=== PATIENT | female | born 1985 | race African-American/Black ===

== ENCOUNTER 2016-03-14 00:13 | Emergency (ER) | payer MEDICARE, MEDICAID ==
[~2016-03-14] VITALS: Ht 162.6 cm; Wt 90.7 kg
[~2016-03-14 00:13] MED LIST: AC325T; ACHD5005 PO; AMPI250C11 PO; BENZ100C18 PO; CEFP500T4 PO; CPR500T PO; CYCL10TA9 PO; DEPO SHOT; DOXY100C2 PO; ESCT10T; HYDR-1231 PO; HYDR-2890 PO; HYDR-34 PO; HYDR1CAP2; HYDR1CAP2 PO; HYDR1TAB66 PO; IBP600T1 PO; IBP800T PO; METH4TAB PO; METR500T PO; NAPR-243 PO; NAPR550T PO; NAPROXEN; NITR-65 PO; NITR100C PO; NYQUIL; ONDA-42 SL; ONDAN4ODT PO; PHEN200T27 PO; PHENTERMINE HCL; PRD20T PO; PRD50T PO; PRM25T PO; SULF-222 PO; SULF1TAB38 PO; SULF1TAB7 PO; TRAM-21 PO; TRAM50TA2 PO; TRM50T PO; ZLP10T
--- OUTSIDE RECORDS SUMMARY | 2016-03-14 00:20 | XMS REPORT | Continuity of Care Document ---
Author Author [facility] Organization [facility] Address Unknown Phone Unavailable Care Team Providers Care Capacitor Tester Name Role Phone YAJAIRA ARNDT DO PCP Insurance Providers Payer Name Policy Number Subscriber Name Relationship s Medicare [id number] Margo Evans 20 Self / Same As Patient [facility] [id number] Margo Evans 18 Self / Same As Patient Advance Directives Directive Response Recorded Date/Time Advance Directives No 04/13/14 7:05pm Health Care Power of Geospatial Applications Developer No 04/13/14 7:05pm Organ Donor No 04/13/14 7:05pm Resuscitation Status Full Code 04/13/14 7:05pm Problems Medical Problems Problem Onset Date Status Abdominal pain Unknown Active Urinary tract infectious disease Unknown Active Nausea and vomiting Unknown Active Vomiting Unknown Active Anxiety Unknown Active Depression Unknown Active Lumbago Unknown Active Pyelonephritis Unknown Active Medications Medication Dose Route Sig Days/Qty Instructions Order Date Discontinued Date Status Acetaminophen 05/24/08 08/11/08 Discontinued Ibuprofen 1 Tab PO FOUR TIMES DAILY 40 Qty 05/25/08 08/11/08 Discontinued Naproxen 08/11/08 08/05/09 Discontinued [Depo Shot] 08/11/08 08/05/09 Discontinued Acetaminophen/Hydrocodone Bitart (Lorcet-Hd) 1 Each PO Q 4 - 6 HRS PRN 14 Qty 08/12/08 11/30/08 Discontinued Hydrocodone Bit/Acetaminophen 08/15/08 11/30/08 Discontinued Ciprofloxacin 1 Tab PO TWICE A DAY 20 Qty 08/16/08 11/30/08 Discontinued Escitalopram Oxalate 11/30/08 05/20/09 Discontinued Zolpidem Tartrate 11/30/08 05/20/09 Discontinued Naproxen 1 Each PO BID PRN 20 Qty 12/01/08 02/20/09 Discontinued Methylprednisolone 0 PO DIRECTED 1 Qty FOR PAIN 05/20/09 01/08/10 Discontinued Tramadol HCl 1 Tab PO FOUR TIMES DAILY 20 Qty 05/20/09 01/08/10 Discontinued Cyclobenzaprine HCl (Flexeril) 1 Each PO Q8HR PRN 10 Qty FOR MUSCLE SPASMS AND PAIN 05/20/09 01/08/10 Discontinued Acetaminophen/Hydrocodone Bitart 1 Ea PO Q 4 - 6 HR PRN 20 Qty 01/08/10 Discontinued Cefprozil 1 Each PO TWICE A DAY 20 Qty 08/05/09 01/08/10 Discontinued Benzonatate 1 - 2 Each PO Q 4 - 6 HR PRN 30 Qty FOR COUGH 08/05/0901/08 Discontinued [Nyquil] 08/05/09 12/20/11 Discontinued Trimethoprim/Sulfamethoxazole 1 Ea PO TWICE A DAY 7 Days 08/29/0908/12 Discontinued Naproxen 1 Each PO BID PRN 20 Qty 08/29/09 01/08/10 Discontinued Phenazopyridine HCl 1 Each PO TID PRN 6 Qty 08/29/09 01/08/10 Discontinued Acetaminophen/Hydrocodone Bitart 1 - 2 Each PO EVERY 6 HOURS PRN 10 Qty 06/02/10 12/20/11 Discontinued Naproxen 1 Each PO TWICE A DAY PRN 20 Qty 06/02/10 12/20/11 Discontinued Acetaminophen/Hydrocodone Bitart 1 - 2 Each PO EVERY 6 HOURS PRN 14 Qty 08/08/10 12/20/11 Discontinued Naproxen 1 Each PO TWICE A DAY PRN 20 Qty 08/08/10 12/20/11 Discontinued Doxycycline Hyclate (Vibramycin) 1 Each PO TWICE A DAY 20 Qty 11/07/10 12/20/11 Discontinued Methylprednisolone 0 PO DIRECTED 1 Qty 11/07/10 12/20/11 Discontinued Naproxen 1 Each PO TWICE A DAY PRN 20 Qty 12/20/11 04/11/12 Discontinued Cyclobenzaprine HCl (Flexeril) 1 Each PO TID PRN 04/11/12 05/04/12 Discontinued Ondansetron HCl 4 Mg PO EVERY 4HRS 30 Qty 04/11/12 07/20/12 Discontinued Promethazine HCl 1 Tab PO FOUR TIMES DAILY PRN 10 Qty 05/04/12 Discontinued Nitrofurantoin Macrocrystals 1 Each PO TWICE A DAY 20 Qty FOR INFECTION 05/08/12 07/20/12 Discontinued Nitrofurantoin Macrocrystal 100 Mg PO TWICE A DAY 7 Days 06/25/12 Discontinued Ampicillin 2 Each PO FOUR TIMES DAILY 07/22/12 02/06/13 Discontinued Ciprofloxacin 1 Tab PO TWICE A DAY 5 Days 02/07/13 03/01/13 Discontinued Metronidazole 1 Each PO TWICE A DAY 7 Days 02/07/13 03/01/13 Discontinued Ibuprofen 800 Mg PO GIVE EVERY 8 HRS ON SCHEDULE PRN PAIN 20 Qty 03/01/13 Discontinued Hydrocodone Bit/Acetaminophen 1 Tab PO EVERY 6 HOURS PRN PAIN 07/28/13 Discontinued Tramadol Hcl 50 Mg PO DIRECTED 07/28/13 12/04/13 Discontinued Hydrocodone Bit/Acetaminophen 1 Tab PO EVERY 6 HOURS PRN PAIN 6 Qty 10/0307/28/13 Discontinued Trimethoprim/Sulfamethoxazole 1 Ea PO TWICE A DAY 20 Qty 07/28/13 Discontinued Hydrocodone Bit/Acetaminophen 1 Tab PO EVERY 6 HOURS PRN PAIN 10 Qty 12/04/13 Discontinued Prednisone 40 Mg PO DAILY 6 Qty 03/27/14 04/13/14 Discontinued Tramadol Hcl 50 Mg PO EVERY 4HRS PRN PAIN 20 Qty 03/27/14 04/13/14 Discontinued Trimethoprim/Sulfamethoxazole 1 Ea PO TWICE A DAY 20 Qty 04/13/14 Active Ondansetron Hcl 4 Mg SL EVERY 4HRS 14 Qty FOR NAUSEA AND VOMITING Active Social History Social History Problem Response Recorded Date/Time Alcohol Use Denies Use 04/13/2014 7:05pm Recreational Drug Use No 04/13/2014 7:05pm Recent Foreign Travel No 07/28/2013 2:41pm Recent Infectious Disease Exposure No 07/28/2013 2:41pm Hospitalization with Isolation Denies 04/13/2014 7:05pm Sexually Transmitted Disease No 04/13/2014 7:05pm HIV/AIDS No 04/13/2014 7:05pm Smoking Status Never a Smoker 04/13/2014 7:05pm Do you dip or chew tobacco? No 04/13/2014 7:05pm Query Response Start Date Stop Date Smoking Status Never a Smoker Hospital Discharge Instructions No hospital discharge instructions. Plan of Care No plan of care. Functional Status No functional status results. Allergies, Adverse Reactions, Alerts Allergen Type Severity Reaction Status Last Updated guaifenesin ([id number]) Allergy Mild RASH Active 08/15/08 Codeine Allergy Mild RASH Active 08/15/08 Phenylephrine Allergy Mild Active 12/20/07 cephalexin Adverse Reaction Intermediate IRRITABLITY, TENSE Active phenyltoloxamine ([id number]) Allergy Mild Active 12/20/07 Chlorpheniramine Allergy Mild Active 12/20/07 Phenylpropanolamine Allergy Mild Active 12/20/07 NALDICON COUGH SYRUP Adverse Reaction Intermediate IRRITABILITY, TENSE Active 05/08/05 Immunizations Name Given Type Date of Pneumonia Vaccine 12/12/12 Historical Date of Influenza Vaccine 11/20/13 Historical Vital Signs Acute Vital Signs Vital Response Date/Time Temperature (Fahrenheit) 97.2 degrees F (97.6 - 99.5) Temperature (Calculated Celsius) 36.93793 degrees C (36.4 - 37.5) Temperature Source Temporal Pulse Rate (adult) 93 bpm (60 - 90) Respiratory Rate 18 bpm (12 - 24) O2 Sat by Pulse Oximetry 98 % (88 - 100) Blood Pressure 160/106 mm Hg Pain Pain Intensity 8 Height (Feet) 5 feet Height (Inches) 4 inches Height (Calculated Centimeters) 162.573455 cm Weight (Pounds) 215 pounds Weight (Calculated Grams) 069863.481 gm Weight (Calculated Kilograms) 97.412027 kilograms Calculated BMI 36.90 Results Laboratory Results Test Name Result Units Flags Reference Collection Date/Time Result Date/ Time Comments White Blood Count 9.0 10^3/uL 4.3-11.0 04/13/2014 7:05pm 04/13/2014 7: 18pm Red Blood Count 4.71 10^6/uL 4.35-5.85 04/13/2014 7:05pm 04/13/2014 7: 18pm Hemoglobin 13.6 G/DL 11.5-16.0 04/13/2014 7:05pm 04/13/2014 7:18pm Hematocrit 40 % 35-52 04/13/2014 7:05pm 04/13/2014 7:18pm Mean Corpuscular Volume 85 FL 80-99 04/13/2014 7:05pm 04/13/2014 7: 18pm Mean Corpuscular Hemoglobin 29 PG 25-34 04/13/2014 7:05pm 04/13/2014 7: 18pm Mean Corpuscular Hemoglobin Concent 34 G/DL 32-36 04/13/2014 7:05pm 7:18pm Red Cell Distribution Width 14.1 % 10.0-14.5 04/13/2014 7:05pm 2014 7:18pm Platelet Count 335 10^3/uL 130-400 04/13/2014 7:05pm 04/13/2014 7:18pm Mean Platelet Volume 9.2 FL 7.4-10.4 04/13/2014 7:05pm 04/13/2014 7: 18pm Neutrophils (%) (Auto) 67 % 42-75 04/13/2014 7:05pm 04/13/2014 7:18pm Lymphocytes (%) (Auto) 22 % 12-44 04/13/2014 7:05pm 04/13/2014 7:18pm Monocytes (%) (Auto) 9 % 0-12 04/13/2014 7:05pm 04/13/2014 7:18pm Eosinophils (%) (Auto) 1 % 0-10 04/13/2014 7:05pm 04/13/2014 7:18pm Basophils (%) (Auto) 0 % 0-10 04/13/2014 7:05pm 04/13/2014 7:18pm Neutrophils # (Auto) 6.1 X 10^3 1.8-7.8 04/13/2014 7:05pm 04/13/2014 7: 18pm Lymphocytes # (Auto) 2.0 X 10^3 1.0-4.0 04/13/2014 7:05pm 04/13/2014 7: 18pm Monocytes # (Auto) 0.8 X 10^3 0.0-1.0 04/13/2014 7:05pm 04/13/2014 7: 18pm Eosinophils # (Auto) 0.1 10^3/uL 0.0-0.3 04/13/2014 7:05pm 04/13/2014 7 :18pm Basophils # (Auto) 0.0 10^3/uL 0.0-0.1 04/13/2014 7:05pm 04/13/2014 7: 18pm Urine Color YELLOW 04/13/2014 7:05pm 04/13/2014 7:32pm Urine Clarity VERY CLOUDY * 04/13/2014 7:05pm 04/13/2014 7:32pm Urine pH 6.5 5-9 04/13/2014 7:05pm 04/13/2014 7:32pm Urine Specific [place] 1.015 * 1.016-1.022 04/13/2014 7:05pm 2014 7:32pm Urine Protein 2+ * NEGATIVE 04/13/2014 7:05pm 04/13/2014 7:32pm Urine Glucose (UA) NEGATIVE NEGATIVE 04/13/2014 7:05pm 04/13/2014 7: 32pm Urine RBC (Auto) 1+ * NEGATIVE 04/13/2014 7:05pm 04/13/2014 7:32pm Urine Ketones NEGATIVE NEGATIVE 04/13/2014 7:05pm 04/13/2014 7:32pm Urine Nitrite NEGATIVE NEGATIVE 04/13/2014 7:05pm 04/13/2014 7:32pm Urine Bilirubin NEGATIVE NEGATIVE 04/13/2014 7:05pm 04/13/2014 7: 32pm Urine Urobilinogen 8 MG/DL * NORMAL 04/13/2014 7:05pm 04/13/2014 7:32pm Urine Leukocyte Esterase 3+ * NEGATIVE 04/13/2014 7:05pm 04/13/2014 7: 32pm Urine RBC 0-2 /HPF 04/13/2014 7:05pm 04/13/2014 7:32pm Urine WBC 25-50 /HPF * 04/13/2014 7:05pm 04/13/2014 7:32pm Urine Bacteria MODERATE /HPF * 04/13/2014 7:0504/13/2014 7:32pm Urine Squamous Epithelial Cells 25-50 /HPF * 04/13/2014 7:052014 7:32pm Urine Crystals NONE /LPF 04/13/2014 7:04/13/2014 7:32pm Urine Casts NONE /LPF 04/13/2014 7:0504/13/2014 7:32pm Urine Mucus NEGATIVE /LPF 04/13/2014 7:04/13/2014 7:32pm Urine Culture Indicated YES 04/13/2014 7:04/13/2014 7:32pm Sodium Level 140 MMOL/L 135-145 04/13/2014 7:0504/13/2014 7:46pm Potassium Level 4.0 MMOL/L 3.6-5.0 04/13/2014 7:0504/13/2014 7:46pm Chloride Level 108 MMOL/L H 98-107 04/13/2014 7:0504/13/2014 7:46pm Carbon Dioxide Level 22 MMOL/L 21-32 04/13/2014 7:0504/13/2014 7: 46pm Blood Urea Nitrogen 9 MG/DL 7-18 04/13/2014 7:0504/13/2014 7:46pm Creatinine 0.70 MG/DL 0.60-1.30 04/13/2014 7:0504/13/2014 7:46pm BUN/Creatinine Ratio 13 04/13/2014 7:0504/13/2014 7:46pm Estimat Glomerular Filtration Rate > 60 04/13/2014 7:2014 7:46pm GFR INTERPRETIVE DATA UNITS FOR ESTIMATED GFR (eGFR): mL/min/1.73 M2 REFERENCE RANGE FOR ESTIMATED GFR (eGFR) eGFR NORMAL eGFR >60 MODERATELY DECREASED eGFR 30-59 SEVERLY DECREASED eGFR 15-29 KIDNEY FAILURE <15 (OR DIALYSIS) Glucose Level 75 MG/DL 70-105 04/13/2014 7:05pm 04/13/2014 7:46pm Calcium Level 9.2 MG/DL 8.5-10.1 04/13/2014 7:0504/13/2014 7:46pm Total Bilirubin 0.4 MG/DL 0.1-1.0 04/13/2014 7:0504/13/2014 7:46pm Alkaline Phosphatase 89 U/L 40-136 04/13/2014 7:05pm 04/13/2014 7:46pm Aspartate Amino Transf (AST/SGOT) 28 U/L 5-34 04/13/2014 7:05pm 2014 7:46pm Alanine Aminotransferase (ALT/SGPT) 34 U/L 0-55 04/13/2014 7:05pm 04/13 7:46pm Total Protein 7.1 G/DL 6.4-8.2 04/13/2014 7:05pm 04/13/2014 7:46pm Albumin 3.7 G/DL 3.2-4.5 04/13/2014 7:05pm 04/13/2014 7:46pm Lipase 34 U/L 8-78 04/13/2014 7:05pm 04/13/2014 7:46pm Procedures No known history of procedures. Encounters Encounter Location Date/Time Departed Emergency Room [facility] 04/13/14 6:50pm Departed Emergency Room [facility] 03/27/14 8:04pm Recent Diagnosis
[2016-03-14] MEDS ORDERED: METH4TAB PO (01:49)
[2016-03-14] MEDS ORDERED: FLUT9.9S NS (01:49)
[2016-03-14] MEDS ORDERED: DOXY100C42 PO (01:49)
--- NOTE | 2016-03-14 01:50 | ED General ---
General Chief Complaint: General Problems/Pain Stated Complaint: BACK PAIN EAR PROBLEMS Nursing Triage Note: Pt presents to ED with c/o bilateral ear congestion since 02-23-16 and midline back pain- chronic. Pt reports she has not f/u with Martha to refill [place] script because she has been busy. Nursing Sepsis Screen: No Definite Risk Source of Information: Patient History of Present Illness Time Seen by Provider: 01:10 Initial Comments PT WITH MULTIPLE COMPLAINTS C/O CHRONIC BACK PAIN--HAS BEEN OUT OF HER [facility] FOR A WEEK, AND HAS NOT ATTEMPTED TO FOLLOW UP WITH HER PCP FOR REFILLS, DR. ARNDT STATES PAIN IS MORE ON LEFT POSTERIOR RIB AREA RIGHT NOW PT HAS NOT TAKEN ANYTHING FOR PAIN SINCE SHE RAN OUT OF HER [facility] NO NEW INJURY NO PARESTHESIAS OR MOTOR DEFICITS PT ALSO C/O BILATERAL EAR PAIN AND CONGESTION SINCE 02/23/16 PT HAS HAD COLD SYMPTOMS SINCE THEN WELL--COUGH, NASAL CONGESTION AND DRAINAGE. PT STATES THESE SYMPTOMS ARE BETTER NO FEVER HAS NOT TAKEN ANYTHING FOR THESE SYMPTOMS EITHER SYMPTOMS ARE NO DIFFERENT TODAY IN ANY WAY HAS NOT SOUGHT CARE UNTIL TODAY PCP: DR. ARNDT Allergies and Home Medications Allergies Coded Allergies: chlorpheniramine (Verified Allergy, Mild, 12/20/07) codeine (Unverified Allergy, Mild, RASH, 08/15/08) guaifenesin (Unverified Allergy, Mild, RASH, 08/15/08) phenylephrine (Verified Allergy, Mild, 12/20/07) phenylpropanolamine (Verified Allergy, Mild, 12/20/07) phenyltoloxamine (Verified Allergy, Mild, 12/20/07) cephalexin (Unverified Adverse Reaction, Intermediate, IRRITABLITY, TENSE , 05/08/05) Uncoded Allergies: NALDICON COUGH SYRUP (Adverse Reaction, Intermediate, IRRITABILITY, TENSE, 05/08/05) Home Medications (Reported) Doxycycline Monohydrate 100 Mg Capsule #20 100 MG PO BID Prescribed by: MICHELLE CARDOZO on 03/14/16148 Fluticasone Propionate 9.9 Ml [place].susp #1 2 SPRAYS NS BID Prescribed by: MICHELLE CARDOZO on 03/14/16148 Methylprednisolone 4 Mg Tab.ds.pk #1 4 MG PO UD Prescribed by: MICHELLE CARDOZO on 03/14/16148 Naproxen Sodium 550 Mg Tablet #10 550 MG PO BID PRN PRN PAIN Prescribed by: BERTO MARTINEZ on 06/20/15 0306 Constitutional: no symptoms reported EENTM: ear pain nose congestion see HPI Respiratory: see HPI coughNo short of breath, No wheezing Cardiovascular: no symptoms reported Gastrointestinal: no symptoms reported Genitourinary: no symptoms reported : No LMP: Mar 06, 2016 (S/P BTL) Musculoskeletal: see HPI back pain Skin: no symptoms reported Psychiatric/Neurological: No Symptoms Reported Hematologic/Lymphatic: No Symptoms Reported Immunological/Allergic: no symptoms reported Past Dissrjt-Zosnjf-Sfpqie Hx Patient Social History Alcohol Use: Denies Use Recreational Drug Use: No Smoking Status: Former Smoker Type Used: Cigarettes Recent Foreign Travel: No Contact w/Someone Who Travel: No Recent Infectious Disease Expo: No Recent Hopitalizations: Yes (APPENDECTOMY) Physical Abuse Screen: No Sexual Abuse: No Immunizations Up To Date Tetanus Booster (TDap): Unknown Date of Pneumonia Vaccine: Dec 12, 2012 Date of Influenza Vaccine: Nov 20, 2013 Seasonal Allergies Seasonal Allergies: No Surgeries HX Surgeries: Yes Surgeries: Appendectomy, Section, Tubal Ligation Respiratory Hx Respiratory Disorders: Yes Respiratory Disorders: Asthma Cardiovascular Hx Cardiac Disorders: No Neurological Hx Neurological Disorders: No Reproductive System Hx Reproductive Disorders: No Sexually Transmitted Disease: No HIV/AIDS: No Female Reproductive Disorders: Denies 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 Genitourinary Hx Genitourinary Disorders: No Gastrointestinal Hx Gastrointestinal Disorders: No Gastrointestinal Disorders: Ulcer Musculoskeletal Hx Musculoskeletal Disorders: Yes Musculoskeletal Disorders: Chronic Back Pain Endocrine Hx Endocrine Disorders: No HEENT HX ENT Disorders: No Cancer Hx Cancer: No Psychosocial Hx Psychiatric Problems: No Integumentary HX Skin/Integumentary Disorder: No Blood Transfusions Hx Blood Disorders: No Adverse Reaction to a Blood Tr: No Family Medical History Significant Family History: Cancer, Diabetes Physical Exam Vital Signs Vital Sign - Last 12Hours 03/14/16 00:58 Temp 98.5 Pulse 89 Resp 18 B/P 136/94 Pulse Ox 99 O2 Delivery Room Air Capillary Refill : Less Than 3 Seconds General Appearance: No Apparent Distress WD/WN Obese HEENT: PERRL/EOMI Pharynx Normal Other (NASAL MUCOSAL EDEMA AND CLEAR RHINORRHEA. NO SINUS TENDERNESS. TM'S INFLAMED BILATERALLY AND DULL WITH LARGE EFFUSIONS BILATERALLY. ) Neck: Full Range of Motion Normal Inspection Non Tender SuppleNo Lymphadenopathy (L), No Lymphadenopathy (R) Respiratory: Normal Breath Sounds No Accessory Muscle Use No Respiratory Distress Cardiovascular: Regular Rate, Rhythm No Edema No JVD No Murmur Normal Peripheral Pulses Gastrointestinal: Normal Bowel Sounds Non Tender Soft Back: No Vertebral Tenderness CVA Tenderness (L) Extremity: Normal Capillary Refill Normal Inspection Normal Range of Motion Non Tender No Calf Tenderness No Pedal Edema Neurologic/Psychiatric: Alert Oriented x3 No Motor/Sensory Deficits Normal Mood/Affect powerhouse tender II-XII Norm as Tested Skin: Normal Color Warm/DryNo Rash Progress/Results/Core Measures Results/Orders My Orders Orders-MICHELLE CARDOZO DO Chest Pa/Lat (2 View) (03/14/16 01:21) Vital Signs/I&O Vital Sign - Last 12Hours 03/14/16 03/14/16 00:58 01:55 Temp 98.5 Pulse 89 83 Resp 18 18 B/P 136/94 Pulse Ox 99 98 O2 Delivery Room Air Room Air Blood Pressure Mean: 108 Diagnostic Imaging Comments CXR--NO ACUTE PROCESS, PENDING RADIOLOGIST REVIEW Reviewed: Reviewed by Me Departure Impression Impression: Primary Impression: Upper respiratory infection Additional Impressions: Bilateral otitis media with effusion Chronic back pain Chronic narcotic use Disposition: HOME, SELF-CARE Condition: Stable Departure-Patient Inst. Referrals: YAJAIRA ARNDT DO (PCP/Family) Primary Care Physician Patient Instructions: Bacterial Upper Respiratory Infection, Adult (DC), CHRONIC PAIN, Ear Infections (Otitis Media) (DC), MANAGING YOUR CHRONIC PAIN, Serous Otitis Media (DC) Add. Discharge Instructions: MOIST HEAT TO SORE AREAS AT 20 MINUTE INTERVALS OVER THE COUNTER ROBITUSSIN DM AND ZYRTEC FOR COUGH AND NASAL CONGESTION TYLENOL AND MOTRIN NEEDED FOR PAIN FOLLOW UP WITH DR. ARNDT THIS WEEK FOR FURTHER CARE All discharge instructions reviewed with patient and/or family. Voiced understanding. Scripts Fluticasone Propionate (Flonase Allergy Relief)9.9 Ml [place].susp2 Sprays NS BID #1 SPRAY Prov:MICHELLE CARDOZO DO 03/14/16 Doxycycline Monohydrate 100 Mg [id number] Mg PO BID #20 CAP Prov:MICHELLE CARDOZO DO 03/14/16 Methylprednisolone (Medrol)4 Mg Tab.ds.pk4 Mg PO UD #1 PKG Prov:MICHELLE CARDOZO DO 03/14/16 MICHELLE CARDOZO DO Mar 14, 2016 01:50
[2016-03-14 01:55] VITALS: BP 136/77
--- NOTE | 2016-03-14 07:22 | Diagnostic Imaging Report ---
INDICATION: Cough and congestion x3 weeks. PA and lateral chest. FINDINGS: Heart size and pulmonary vascularity are normal. Lungs are clear. There are no effusions or pneumothoraces. IMPRESSION: Negative chest. Dictated by: Dictated on workstation # [id number]
== END 2016-03-14 01:55 | disposition home or self-care (01) ==
LOC: EDUNIT# 00:13 → ER 00:16
DX: H65.93 Unspecified nonsuppurative otitis media, bilateral (principal); M54.5 Low back pain; G89.29 Other chronic pain; Z79.891 Long term (current) use of opiate analgesic
CPT/HCPCS: 71020

== ENCOUNTER 2016-10-21 02:21 | Observation (INO) | payer MEDICARE, MEDICAID ==
[~2016-10-21] VITALS: Ht 162.6 cm; Wt 83.0 kg
[2016-10-21] VITALS (15 sets, daily range): BP systolic 105–145; BP diastolic 62–118
[~2016-10-21 02:21] MED LIST changes: +DOXY100C42 PO; +FLUT9.9S NS
[2016-10-21] MEDS ORDERED: ACTIVATED CHARCOAL/SORBITOL 50 G/240 ML BTL PO ONE (02:45)
[2016-10-21 02:58] LABS: BILIRUBIN,URINE NEGATIVE (NEGATIVE); KETONES,URINE NEGATIVE (NEGATIVE); LEUKOCYTE ESTERASE ,URINE 3+ (NEGATIVE); NITRITE,URINE NEGATIVE (NEGATIVE); PH,URINE 6 (5-9); PROTEIN,URINE NEGATIVE (NEGATIVE); UROBILINOGEN,URINE 1 MG/DL (NORMAL)
[2016-10-21 03:08] LABS: BASOPHILS # (AUTO) 0.1 10^3/uL (0.0-0.1); BASOPHILS % (AUTO) 0 % (0-10); EOSINOPHILS # (AUTO) 0.1 10^3/uL (0.0-0.3); EOSINOPHILS % (AUTO) 1 % (0-10); LYMPHOCYTES # (AUTO) 3.3 X 10^3 (1.0-4.0); LYMPHOCYTES % (AUTO) 28 % (12-44); MEAN CORPUSCULAR HEMOGLOBIN 30 PG (25-34); MEAN CORPUSCULAR HGB CONC 33 G/DL (32-36); MEAN CORPUSCULAR VOLUME 89 FL (80-99); MEAN PLATELET VOLUME 9.3 FL (7.4-10.4); MONOCYTES # (AUTO) 1.1 X 10^3 (0.0-1.0); MONOCYTES % (AUTO) 9 % (0-12); NEUTROPHILS # (AUTO) 7.2 X 10^3 (1.8-7.8); NEUTROPHILS % (AUTO) 61 % (42-75); PLATELET COUNT 436 10^3/uL (130-400); RED BLOOD COUNT 4.59 10^6/uL (4.35-5.85); RED CELL DISTRIBUTION WIDTH 14.1 % (10.0-14.5); WHITE BLOOD COUNT 11.7 10^3/uL (4.3-11.0)
[2016-10-21 03:11] LABS: SQUAMOUS EPITHELIAL CELL,UR >50 /HPF
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
[2016-10-21 03:21] LABS: ALANINE AMINOTRANSFERASE 12 U/L (0-55); ALBUMIN 4.3 GM/DL (3.2-4.5); ALCOHOL < 10 MG/DL (<10); ANION GAP 14 MMOL/L (5-14); ASPARTATE AMINO TRANSFERASE 17 U/L (5-34); BILIRUBIN,TOTAL 0.4 MG/DL (0.1-1.0); BLOOD UREA NITROGEN 9 MG/DL (7-18); BUN/CREATININE RATIO 12; CALCIUM 9.8 MG/DL (8.5-10.1); CARBON DIOXIDE 20 MMOL/L (21-32); CHLORIDE 107 MMOL/L (98-107); CREATININE SERUM 0.77 MG/DL (0.60-1.30); GFR ESTIMATED > 60; GLUCOSE 93 MG/DL (70-105); POTASSIUM 3.3 MMOL/L (3.6-5.0); SALICYLATE < 5.0 MG/DL (5.0-20.0); SODIUM 141 MMOL/L (135-145); TOTAL PROTEIN 7.8 GM/DL (6.4-8.2)
[2016-10-21 03:31] LABS: ACETAMINOPHEN < 10 UG/ML (10-30)
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
[2016-10-21] MEDS ORDERED: KCL 20 MEQ TAB (K-DUR) PO NR (07:15)
[2016-10-21] MEDS: D5 1/2 NS 1000 ML IV SOLUTION 1,000 ML IV SCH ×2 (07:27→20:50)
[2016-10-21] MEDS: NITROFURANTOIN 100 MG (MACROBID) CAPSULE PO SCH ×2 (08:25→20:52)
[2016-10-21] MEDS: ACETAMINOPHEN 325 MG TABLET/CAPLET (TYLENOL) PO PRN (09:53)
[2016-10-21] MEDS: ANTACID SUSP 30 ML UDC (MYLANTA) PO PRN (09:53)
[2016-10-22 00:24] VITALS: BP 126/58
[2016-10-22] MEDS: ANTACID SUSP 30 ML UDC (MYLANTA) PO PRN (01:59)
[2016-10-22 04:14] VITALS: BP 108/63
[2016-10-22] MEDS: ACETAMINOPHEN 325 MG TABLET/CAPLET (TYLENOL) PO PRN (04:18)
[2016-10-22] MEDS: D5 1/2 NS 1000 ML IV SOLUTION 1,000 ML IV SCH (04:25)
[2016-10-22 05:46] LABS: BASOPHILS % (AUTO) 0 % (0-10); EOSINOPHILS # (AUTO) 0.2 10^3/uL (0.0-0.3); EOSINOPHILS % (AUTO) 2 % (0-10); LYMPHOCYTES # (AUTO) 3.1 X 10^3 (1.0-4.0); LYMPHOCYTES % (AUTO) 35 % (12-44); MEAN CORPUSCULAR HEMOGLOBIN 30 PG (25-34); MEAN CORPUSCULAR HGB CONC 34 G/DL (32-36); MEAN CORPUSCULAR VOLUME 90 FL (80-99); MEAN PLATELET VOLUME 9.3 FL (7.4-10.4); MONOCYTES # (AUTO) 0.8 X 10^3 (0.0-1.0); MONOCYTES % (AUTO) 9 % (0-12); NEUTROPHILS # (AUTO) 4.7 X 10^3 (1.8-7.8); NEUTROPHILS % (AUTO) 53 % (42-75); PLATELET COUNT 360 10^3/uL (130-400); RED BLOOD COUNT 4.28 10^6/uL (4.35-5.85); WHITE BLOOD COUNT 8.8 10^3/uL (4.3-11.0)
[2016-10-22 06:16] LABS: ALANINE AMINOTRANSFERASE 10 U/L (0-55); ALBUMIN 3.4 GM/DL (3.2-4.5); ANION GAP 8 MMOL/L (5-14); ASPARTATE AMINO TRANSFERASE 14 U/L (5-34); BILIRUBIN,TOTAL 0.4 MG/DL (0.1-1.0); BLOOD UREA NITROGEN 7 MG/DL (7-18); BUN/CREATININE RATIO 10; CALCIUM 8.8 MG/DL (8.5-10.1); CARBON DIOXIDE 23 MMOL/L (21-32); CHLORIDE 108 MMOL/L (98-107); CREATININE SERUM 0.69 MG/DL (0.60-1.30); GFR ESTIMATED > 60; GLUCOSE 105 MG/DL (70-105); POTASSIUM 3.6 MMOL/L (3.6-5.0); SODIUM 139 MMOL/L (135-145); TOTAL PROTEIN 5.7 GM/DL (6.4-8.2)
[2016-10-22 08:00] VITALS: BP 118/69
[2016-10-22] MEDS: NITROFURANTOIN 100 MG (MACROBID) CAPSULE PO SCH (08:37)
--- NOTE | 2016-10-22 11:41 | Discharge Summary-Hospitalist ---
Diagnosis/Chief Complaint Date of Admission Oct 21, 2016 at 04:20 Date of Discharge October 22, 2016 Discharge Date: Oct 22, 2016 Discharge Time: 14:00 Admission Diagnosis drug overdose intentional Dysfunctional home environment Stress and anxiety Discharge Diagnosis intentional drug overdose secondary to difficult living circumstances Discharge Summary Procedures none Consultations mental health Discharge Physical Examination Allergies: Coded Allergies: chlorpheniramine (Verified Allergy, Mild, 12/20/07) codeine (Unverified Allergy, Mild, RASH, 08/15/08) guaifenesin (Unverified Allergy, Mild, RASH, 08/15/08) phenylephrine (Verified Allergy, Mild, 12/20/07) phenylpropanolamine (Verified Allergy, Mild, 12/20/07) phenyltoloxamine (Verified Allergy, Mild, 12/20/07) cephalexin (Unverified Adverse Reaction, Intermediate, IRRITABLITY, TENSE , 05/08/05) Uncoded Allergies: NALDICON COUGH SYRUP (Adverse Reaction, Intermediate, IRRITABILITY, TENSE, 05/08/05) Vitals & I&Os Vital Signs Date Time Temp Pulse Resp B/P (MAP) Pulse Ox O2 Delivery O2 Flow Rate FiO2 10/22/16 08:00 97.9 72 20 118/69 99 Room Air General Appearance: Alert, Oriented X3 HEENT: Atraumatic Respiratory: Clear to Auscultation Cardiovascular: Regular Rate, Normal S1, Normal S2 Abdominal: Normal Bowel Sounds, Soft Extremities: No Clubbing, No Edema Skin: No Rashes Psych/Mental Status: Mental Status NL (patient denies any suicidal ideation but just wanted to get away from her family for a little bit of time she has plans to either Lipitor nephew's house or return to her home environment and avoid confrontation with her significant other she has been giving plans to get to a safe house if needed and has the number to follow up with a counselor.) Hospital Course patient was admitted with hypersomnolent secondary to medication overdose. With IV fluids and sleep she awakened and denies any suicidal ideation. Her is significant other and her children have come to visit and wanted her to come home. She says that she is okay going home and does not feel threatened in any way but she had just wanted to go to sleep and get away from the stress and confrontation with her significant other. She enjoys her job and otherwise has been doing well. She has been given numbers for follow-up with mental health counselors and they will call and check on her. She has plans to follow up with them next week. She feels that she wants to go and is stable for discharge. Labs (last 24 hrs) Laboratory Tests 10/22/16 05:35: White Blood Count 8.8, Red Blood Count 4.28L, Hemoglobin 13.0, Hematocrit 39, Mean Corpuscular Volume 90, Mean Corpuscular Hemoglobin 30, Mean Corpuscular Hemoglobin Concent 34, Red Cell Distribution Width 14.0, Platelet Count 360, Mean Platelet Volume 9.3, Neutrophils (%) (Auto) 53, Lymphocytes (%) (Auto) 35, Monocytes (%) (Auto) 9, Eosinophils (%) (Auto) 2, Basophils (%) (Auto) 0, Neutrophils # (Auto) 4.7, Lymphocytes # (Auto) 3.1, Monocytes # (Auto) 0.8, Eosinophils # (Auto) 0.2, Basophils # (Auto) 0.0, Sodium Level 139, Potassium Level 3.6, Chloride Level 108H, Carbon Dioxide Level 23, Anion Gap 8, Blood Urea Nitrogen 7, Creatinine 0.69, Estimat Glomerular Filtration Rate > 60, BUN/ Creatinine Ratio 10, Glucose Level 105, Calcium Level 8.8, Total Bilirubin 0.4, Aspartate Amino Transf (AST/SGOT) 14, Alanine Aminotransferase (ALT/SGPT) 10, Alkaline Phosphatase 52, Total Protein 5.7L, Albumin 3.4 Pending Labs Laboratory Tests 10/22/16 05:35: White Blood Count 8.8, Red Blood Count 4.28, Hemoglobin 13.0, Hematocrit 39, Mean Corpuscular Volume 90, Mean Corpuscular Hemoglobin 30, Mean Corpuscular Hemoglobin Concent 34, Red Cell Distribution Width 14.0, Platelet Count 360, Mean Platelet Volume 9.3, Neutrophils (%) (Auto) 53, Lymphocytes (%) (Auto) 35, Monocytes (%) (Auto) 9, Eosinophils (%) (Auto) 2, Basophils (%) (Auto) 0, Neutrophils # (Auto) 4.7, Lymphocytes # (Auto) 3.1, Monocytes # (Auto) 0.8, Eosinophils # (Auto) 0.2, Basophils # (Auto) 0.0, Sodium Level 139, Potassium Level 3.6, Chloride Level 108, Carbon Dioxide Level 23, Anion Gap 8, Blood Urea Nitrogen 7, Creatinine 0.69, Estimat Glomerular Filtration Rate > 60, BUN/ Creatinine Ratio 10, Glucose Level 105, Calcium Level 8.8, Total Bilirubin 0.4, Aspartate Amino Transf (AST/SGOT) 14, Alanine Aminotransferase (ALT/SGPT) 10, Alkaline Phosphatase 52, Total Protein 5.7, Albumin 3.4 Discharge Home Medications: Active Scripts Active No Active Prescriptions or Reported Medications Instructions to patient/family Please see electonic discharge instructions given to patient. Clinical Quality Measures DVT/VTE Risk/Contraindication: RFS Level Per Nursing on Admit: 0=No Risk/No VTE PPX CYNTHIA GRAVES MD Oct 22, 2016 11:41
== END 2016-10-22 11:34 | disposition home or self-care (01) ==
LOC: EDUNIT# 02:21 → ER 02:24 → UNDOADMOB 03:15 → ICU 03:15 → 4TH 20:53
PROVIDERS: ADMIT Family Medicine; ATTEND Family Medicine
DX: T48.1X2A Poisoning by skeletal muscle relaxants [neuromuscular blocking agents], intentional self-harm, initial encounter (principal); F19.982 Other psychoactive substance use, unspecified with psychoactive substance-induced sleep disorder; F33.9 Major depressive disorder, recurrent, unspecified; F41.9 Anxiety disorder, unspecified; F15.90 Other stimulant use, unspecified, uncomplicated; F17.210 Nicotine dependence, cigarettes, uncomplicated; Z63.79 Other stressful life events affecting family and household
CPT/HCPCS: 36415; 80053; 80306; 80320; 80329; 81000; 84443; 84703; 85025; 93005

== ENCOUNTER 2017-04-25 22:55 | Emergency (ER) | payer MEDICARE, MEDICAID ==
[~2017-04-25] VITALS: Ht 162.6 cm; Wt 54.4 kg
[~2017-04-25 22:55] MED LIST changes: +NAPR-1070 PO; -NAPR550T PO
--- OUTSIDE RECORDS SUMMARY | 2017-04-25 23:01 | XMS REPORT ---
Author Author WESLEY RAMIREZ Organization [facility] Address [address] [place] [address] Care Team Providers Care Varnish Melter Name Role Phone WESLEY RAMIREZ Unavailable PROBLEMS Type Condition ICD9-CM Code IML26-SP Code Onset Dates Condition Status SNOMED Code Problem Other chronic pain G89.29 Active 69853693 Problem Dysthymic disorder 300.4 Active [id number] ALLERGIES Substance Reaction Event Type Date Status Keflex Unknown Drug Allergy Mar, Active SOCIAL HISTORY Never Assessed PLAN OF CARE Activity Details Follow Up prn Reason: VITAL SIGNS Weight 228.4 lbs 2016-04-18 Temperature 96.6 degrees Fahrenheit 2016-04-18 Heart Rate 80 bpm 2016-04-18 Respiratory Rate 20 2016-04-18 Blood pressure systolic 120 mmHg 2016-04-18 Blood pressure diastolic 72 mmHg 2016-04-18 MEDICATIONS Medication Instructions Dosage Frequency Start Date End Date Duration Status Tramadol HCl Active PredniSONE 20 mg Orally Once a day 4 tabs x 4 days, 3 tabs x 4 days, 2 tabs x 4 days, then 1 tab x 4 days 24h Mar, Apr, 16 days Active Flexeril Active RESULTS No Results PROCEDURES Procedure Date Ordered Result Body Site [facility] VISIT ESTABLISHED PATIENT Apr 18, 2016 IMMUNIZATIONS No Known Immunizations MEDICAL (GENERAL) HISTORY Type Description Date Surgical History appendectomy
--- OUTSIDE RECORDS SUMMARY | 2017-04-25 23:02 | XMS REPORT | Continuity of Care Document ---
Author Author [facility] Address Unknown Phone Unavailable Allergies Active Description Code Type Severity Reaction Onset Reported/Identified Relationship to Patient Clinical Status Yes cephalexin [id number] Drug Allergy Moderate IRRITABLITY, TE 05/08/2005 Yes NALDICON COUGH SYRUP NALDICON COUGH SYRUP Moderate IRRITABILITY, T 2005 Yes chlorpheniramine [id number] Drug Allergy Mild N/A 12/20/2007 Yes phenylephrine [id number] Drug Allergy Mild N/A 12/20/2007 Yes phenylpropanolamine [id number] Drug Allergy Mild N/A 12/20/2007 Yes phenyltoloxamine [id number] Drug Allergy Mild N/A 12/20/2007 Yes codeine [id number] Drug Allergy Mild RASH 08/15/2008 Yes guaifenesin [id number] Drug Allergy Mild RASH 08/15/2008 Medications There is no data. Problems Date Dx Coded Attending Type Code Diagnosis Diagnosed By 08/05/2009 Ot 490 08/05/2009 Ot 786.2 08/05/2009 Ot 786.2 08/05/2009 Ot 786.52 08/29/2009 Ot 599.0 08/29/2009 Ot 788.1 09/15/2009 Ot 789.09 01/08/2010 Ot 599.0 01/08/2010 Ot 625.9 01/08/2010 Ot 599.0 01/08/2010 Ot 789.00 01/11/2010 Ot 599.0 01/11/2010 Ot 789.09 02/21/2010 Ot 490 02/21/2010 Ot 786.2 02/21/2010 Ot 787.03 05/24/2010 Ot 490 05/24/2010 Ot 786.2 06/02/2010 Ot 789.01 08/08/2010 Ot 789.09 09/01/2010 Ot 614.9 FEM PELV INFLAM DIS NOS 09/01/2010 Ot 625.9 FEM GENITAL SYMPTOMS NOS 11/07/2010 Ot 465.9 ACUTE URI NOS 11/07/2010 Ot 786.2 COUGH 12/20/2011 Ot 845.00 SPRAIN OF ANKLE NOS 12/20/2011 Ot 959.7 LOWER LEG INJURY NOS 12/20/2011 Ot E000.8 OTHER EXTERNAL CAUSE STATUS 12/20/2011 Ot E849.0 ACCIDENT IN HOME 12/20/2011 Ot E885.9 FALL FROM SLIPPING, TRIPPING, OR STUMBLI 04/11/2012 Ot 787.03 VOMITING ALONE 04/11/2012 Ot 789.00 ABDOMINAL PAIN, UNSPECIFIED SITE 05/04/2012 Ot 646.83 PREG COMPL NEC-ANTEPART 05/04/2012 Ot 789.00 ABDOMINAL PAIN, UNSPECIFIED SITE 05/08/2012 Ot 599.0 URIN TRACT INFECTION NOS 05/08/2012 Ot 646.63 INFECTION -ANTEPARTUM 05/08/2012 Ot 789.09 ABDOMINAL PAIN, OTHER SPECIFIED SITE 06/25/2012 ASHVIN SALAS MD Ot 599.0 URIN TRACT INFECTION NOS 06/25/2012 ASHVIN SALAS MD Ot 616.0 CERVICITIS 06/25/2012 ASHVIN SALAS MD Ot 646.63 INFECTION-ANTEPARTUM 06/25/2012 ASHVIN SALAS MD Ot 789.00 ABDOMINAL PAIN, UNSPECIFIED SITE 07/22/2012 FABY LAMBERT MD Ot 599.0 URIN TRACT INFECTION NOS 07/22/2012 FABY LAMBERT MD Ot 646.63 INFECTION-ANTEPARTUM 07/22/2012 FABY LAMBERT MD Ot 649.73 CERVICAL SHORTENING, ANTEPARTUM CONDITIO 07/22/2012 FABY LAMBERT MD Ot V13.21 PERSONAL HISTORY PRE-TERM LABOR 07/22/2012 FABY LAMBERT MD Ot V13.29 PERSONAL HISTORY GENITAL SYSTEM/OBSTETRI 02/07/2013 CHIKA FAITH, GENESIS Motley Ot 599.0 URIN TRACT INFECTION NOS 02/07/2013 GENESIS FARR MD Ot 789.09 ABDOMINAL PAIN, OTHER SPECIFIED SITE 03/01/2013 BERTO MARTINEZ MD Ot 787.01 NAUSEA WITH VOMITING 03/01/2013 BERTO MARTINEZ MD Ot 789.03 ABDOMINAL PAIN, RIGHT LOWER QUADRANT 07/28/2013 LINETTE FLORES Ot 493.90 ASTHMA, UNSPECIFIED 07/28/2013 LINETTE FLORES Ot 719.46 JOINT PAIN-L/LEG 12/04/2013 CHIKA FAITH, GENESIS Motley Ot 300.00 ANXIETY STATE NOS 12/04/2013 CHIKA FAITH, GENESIS Motley Ot 311 DEPRESSIVE DISORDER NEC 03/27/2014 GENESIS FARR MD Ot 724.2 LUMBAGO 04/13/2014 Ot 590.80 PYELONEPHRITIS NOS 04/13/2014 Ot 789.00 ABDOMINAL PAIN, UNSPECIFIED SITE 04/16/2014 ZAKIYA PHD, DANK Patiño 300.4 MO DYSTHYMIC DISORDER 04/16/2014 ZAKIYA CLARK, DANK Patiño 300.4 MO DYSTHYMIC DISORDER 06/29/2014 Ot 626.0 06/29/2014 ASHVIN SALAS MD Ot 729.1 MYALGIA AND MYOSITIS NOS 06/29/2014 ASHVIN SALAS MD Ot 729.5 PAIN IN LIMB 09/05/2014 Ot 626.0 10/02/2014 Ot 626.0 10/07/2014 DELIA FAITH, HARLEY Oneil Ot 724.2 10/22/2014 DELIA FAITH, HARLEY Oneil Ot 724.2 10/29/2014 DELIA FAITH, HARLEY Oneil Ot 724.2 10/30/2014 DELIA FAITH, HARLEY Oneil Ot 724.2 11/05/2014 DELIA FAITH, HARLEY Oneil Ot 724.2 11/12/2014 Ot 626.0 11/12/2014 DELIA FAITH, [facility] Ot 724.2 11/12/2014 DELIA FAITH, HARLEY Oneil Ot 724.2 11/12/2014 ASHVIN SALAS MD Ot 787.01 NAUSEA WITH VOMITING 11/12/2014 ASHVIN SALAS MD Ot 789.01 ABDOMINAL PAIN, RIGHT UPPER QUADRANT 12/19/2014 DELIA FAITH, HARLEY Oneil Ot 724.2 06/20/2015 JUAN FAITH, BERTO Patiño Ot R07.89 OTHER CHEST PAIN 06/22/2015 JUAN FAITH, BERTO Patiño Ot R07.89 OTHER CHEST PAIN 07/14/2015 JUAN FAITH, BERTO Patiño Ot R07.89 OTHER CHEST PAIN 02/11/2016 DELIA FAITH, HARLEY Oneil Ot 724.2 LUMBAGO 02/11/2016 DELIA FAITH, HARLEY Oneil Ot 724.2 LUMBAGO 02/11/2016 JOSUE FAITH, ASHVIN [place] Ot R11.2 NAUSEA WITH VOMITING, UNSPECIFIED 02/11/2016 JOSUE FAITH, ASHVIN [place] Ot R19.7 DIARRHEA, UNSPECIFIED 02/12/2016 ASHVIN SALAS MD Ot R11.2 NAUSEA WITH VOMITING, UNSPECIFIED 02/12/2016 JOSUE FAITH, ASHVIN [place] Ot R19.7 DIARRHEA, UNSPECIFIED 03/14/2016 CECELIA CARDOZO DOA Christy Ot G89.29 OTHER CHRONIC PAIN 03/14/2016 CECELIA CARDOZO DOA Christy Ot H65.93 UNSPECIFIED NONSUPPURATIVE OTITIS MEDIA, 03/14/2016 CECELIA CARDOZO DOA Christy Ot H92.03 OTALGIA, BILATERAL 03/14/2016 CECELIA CARDOZO DOA Christy Ot M54.5 LOW BACK PAIN 03/14/2016 CECELIA CARDOZO DOA K Ot Z79.891 RESIDENTIAL (CURRENT) USE OF OPIATE ANALGE 10/21/2016 DELIA FAITH, HARLEY Oneil Ot 724.2 LUMBAGO 10/21/2016 DELIA FAITH, HARLEY Oneil Ot 724.2 LUMBAGO 10/22/2016 YAJAIRA ARNDT DO Ot F15.90 OTHER STIMULANT USE, UNSPECIFIED, UNCOMP 10/22/2016 YAJAIRA ARNDT DO Ot F17.210 NICOTINE DEPENDENCE, CIGARETTES, UNCOMPL 10/22/2016 YAJAIRA ARNDT DO Ot F19.982 OTH PSYCHOACTIVE SUBSTANCE USE, UNSP W S 10/22/2016 YAJAIRA ARNDT DO Ot F33.9 MAJOR DEPRESSIVE DISORDER, RECURRENT, UN 10/22/2016 YAJAIRA ARNDT DO Ot F41.9 ANXIETY DISORDER, UNSPECIFIED 10/22/2016 YAJAIRA ARNDT DO Ot T48.1X2A POISONING BY SKELETAL MUSCLE RELAXANTS, 10/22/2016 YAJAIRA ARNDT DO Ot Z63.79 OTHER STRESSFUL LIFE EVENTS AFFECTING FA 10/22/2016 YAJAIRA ARNDT DO Ot 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 Procedures Code Description [place] [address] PSYTX PT&/FAMILY 45 MINUTES 05/29/2014 Results Test Result Range Complete urinalysis with reflex to culture - 02/11/16 22:35 Urine color determination YELLOW NRG Urine clarity determination CLEAR NRG Urine pH measurement by test strip 5 5-9 Specific gravity of urine by test strip 1.025 1.016- 1.022 Urine protein assay by test strip, semi-quantitative 2+ NEGATIVE Urine glucose detection by automated test strip NEGATIVE NEGATIVE Erythrocytes detection in urine sediment by light microscopy 2+ NEGATIVE Urine ketones detection by automated test strip NEGATIVE NEGATIVE Urine nitrite detection by test strip NEGATIVE NEGATIVE Urine total bilirubin detection by test strip NEGATIVE NEGATIVE Urine urobilinogen measurement by automated test strip (mass/volume) NORMAL NORMAL Urine leukocyte esterase detection by dipstick 1+ NEGATIVE Automated urine sediment erythrocyte count by microscopy (number/high power field) RARE NRG Automated urine sediment leukocyte count by microscopy (number/high power field ) [HPF] NRG Bacteria detection in urine sediment by light microscopy TRACE NRG Crystals detection in urine sediment by light microscopy PRESENT NRG Casts detection in urine sediment by light microscopy NONE NRG Mucus detection in urine sediment by light microscopy SMALL NRG Complete urinalysis with reflex to culture NO NRG Amorphous sediment detection in urine sediment by light microscopy FEW BRIDGET URATES NRG Complete blood count (CBC) with automated white blood cell (WBC) differential - 02/11/16 22:40 Blood leukocytes automated count (number/volume) 8.5 10*3/uL 4.3-11.0 Blood erythrocytes automated count (number/volume) 4.79 10*6/uL 4.35-5.85 Venous blood hemoglobin measurement (mass/volume) 14.1 g/dL 11.5-16.0 Blood hematocrit (volume fraction) 41 % 35-52 Automated erythrocyte mean corpuscular volume 86 [foz_us] 80-99 Automated erythrocyte mean corpuscular hemoglobin (mass per erythrocyte) 29 pg 25-34 Automated erythrocyte mean corpuscular hemoglobin concentration measurement ( mass/volume) 34 g/dL 32-36 Automated erythrocyte distribution width ratio 13.7 % 10.0-14.5 Automated blood platelet count (count/volume) 355 10*3/uL 130-400 Automated blood platelet mean volume measurement 9.4 [foz_us] 7.4-10.4 Automated blood neutrophils/100 leukocytes 56 % 42-75 Automated blood lymphocytes/100 leukocytes 31 % 12-44 Blood monocytes/100 leukocytes 11 % 0-12 Automated blood eosinophils/100 leukocytes 1 % 0-10 Automated blood basophils/100 leukocytes 0 % 0-10 Blood neutrophils automated count (number/volume) 4.8 10*3 1.8-7.8 Blood lymphocytes automated count (number/volume) 2.6 10*3 1.0-4.0 Blood monocytes automated count (number/volume) 1.0 10*3 0.0-1.0 Automated eosinophil count 0.1 10*3/uL 0.0-0.3 Automated blood basophil count (count/volume) 0.0 10*3/uL 0.0-0.1 Comprehensive metabolic panel - 02/11/16 22:40 Serum or plasma sodium measurement (moles/volume) 137 mmol/L 135-145 Serum or plasma potassium measurement (moles/volume) 4.0 mmol/L 3.6-5.0 Serum or plasma chloride measurement (moles/volume) 107 mmol/L 98-107 Carbon dioxide 21 mmol/L 21-32 Serum or plasma anion gap determination (moles/volume) 9 mmol/L 5-14 Serum or plasma urea nitrogen measurement (mass/volume) 10 mg/dL 7-18 Serum or plasma creatinine measurement (mass/volume) 0.78 mg/dL 0.60-1.30 Serum or plasma urea nitrogen/creatinine mass ratio 13 NRG Serum or plasma creatinine measurement with calculation of estimated glomerular filtration rate > NRG Serum or plasma glucose measurement (mass/volume) 78 mg/dL 70-105 Serum or plasma calcium measurement (mass/volume) 8.8 mg/dL 8.5-10.1 Serum or plasma total bilirubin measurement (mass/volume) 0.3 mg/dL 0.1-1.0 Serum or plasma alkaline phosphatase measurement (enzymatic activity/volume) 66 U/L 40-136 Serum or plasma aspartate aminotransferase measurement (enzymatic activity/ volume) 27 U/L 5-34 Serum or plasma alanine aminotransferase measurement (enzymatic activity/volume ) 18 U/L 0-55 Serum or plasma protein measurement (mass/volume) 7.3 g/dL 6.4-8.2 Serum or plasma albumin measurement (mass/volume) 4.0 g/dL 3.2-4.5 Magnesium - 02/11/16 22:40 Magnesium 2.4 mg/dL 1.8-2.4 Urine drug screening test - 10/21/16 02:40 Urine phencyclidine detection by screening method NEGATIVE NEGATIVE Urine benzodiazepines detection by screening method NEGATIVE NEGATIVE Urine cocaine detection NEGATIVE NEGATIVE Urine amphetamines detection by screening method POSITIVE NEGATIVE Urine methamphetamine detection by screening method POSITIVE NEGATIVE Urine cannabinoids detection by screening method NEGATIVE NEGATIVE Urine opiates detection by screening method NEGATIVE NEGATIVE Urine barbiturates detection NEGATIVE NEGATIVE Screening urine tricyclic antidepressants detection NEGATIVE NEGATIVE Urine methadone detection by screening method NEGATIVE NEGATIVE Urine oxycodone detection NEGATIVE NEGATIVE Urine propoxyphene detection NEGATIVE NEGATIVE Complete urinalysis with reflex to culture - 10/21/16 02:40 Urine color determination YELLOW NRG Urine clarity determination SLIGHTLY CLOUDY NRG Urine pH measurement by test strip 6 5-9 Specific gravity of urine by test strip 1.020 1.016- 1.022 Urine protein assay by test strip, semi-quantitative NEGATIVE NEGATIVE Urine glucose detection by automated test strip NEGATIVE NEGATIVE Erythrocytes detection in urine sediment by light microscopy 3+ NEGATIVE Urine ketones detection by automated test strip NEGATIVE NEGATIVE Urine nitrite detection by test strip NEGATIVE NEGATIVE Urine total bilirubin detection by test strip NEGATIVE NEGATIVE Urine urobilinogen measurement by automated test strip (mass/volume) 1 mg/dL NORMAL Urine leukocyte esterase detection by dipstick 3+ NEGATIVE Automated urine sediment erythrocyte count by microscopy (number/high power field) [HPF] NRG Automated urine sediment leukocyte count by microscopy (number/high power field ) [HPF] NRG Bacteria detection in urine sediment by light microscopy FEW NRG Squamous epithelial cells detection in urine sediment by light microscopy >50 NRG Crystals detection in urine sediment by light microscopy NONE NRG Casts detection in urine sediment by light microscopy NONE NRG Mucus detection in urine sediment by light microscopy LARGE NRG Complete urinalysis with reflex to culture NO NRG Complete blood count (CBC) with automated white blood cell (WBC) differential - 10/21/16 02:47 Blood leukocytes automated count (number/volume) 11.7 10*3/uL 4.3-11.0 Blood erythrocytes automated count (number/volume) 4.59 10*6/uL 4.35-5.85 Venous blood hemoglobin measurement (mass/volume) 13.7 g/dL 11.5-16.0 Blood hematocrit (volume fraction) 41 % 35-52 Automated erythrocyte mean corpuscular volume 89 [foz_us] 80-99 Automated erythrocyte mean corpuscular hemoglobin (mass per erythrocyte) 30 pg 25-34 Automated erythrocyte mean corpuscular hemoglobin concentration measurement ( mass/volume) 33 g/dL 32-36 Automated erythrocyte distribution width ratio 14.1 % 10.0-14.5 Automated blood platelet count (count/volume) 436 10*3/uL 130-400 Automated blood platelet mean volume measurement 9.3 [foz_us] 7.4-10.4 Automated blood neutrophils/100 leukocytes 61 % 42-75 Automated blood lymphocytes/100 leukocytes 28 % 12-44 Blood monocytes/100 leukocytes 9 % 0-12 Automated blood eosinophils/100 leukocytes 1 % 0-10 Automated blood basophils/100 leukocytes 0 % 0-10 Blood neutrophils automated count (number/volume) 7.2 10*3 1.8-7.8 Blood lymphocytes automated count (number/volume) 3.3 10*3 1.0-4.0 Blood monocytes automated count (number/volume) 1.1 10*3 0.0-1.0 Automated eosinophil count 0.1 10*3/uL 0.0-0.3 Automated blood basophil count (count/volume) 0.1 10*3/uL 0.0-0.1 Serum or plasma choriogonadotropin ( test) detection - 10/21/16 02:47 Serum or plasma choriogonadotropin ( test) detection NEGATIVE NEGATIVE Comprehensive metabolic panel - 10/21/16 02:47 Serum or plasma sodium measurement (moles/volume) 141 mmol/L 135-145 Serum or plasma potassium measurement (moles/volume) 3.3 mmol/L 3.6-5.0 Serum or plasma chloride measurement (moles/volume) 107 mmol/L 98-107 Carbon dioxide 20 mmol/L 21-32 Serum or plasma anion gap determination (moles/volume) 14 mmol/L 5-14 Serum or plasma urea nitrogen measurement (mass/volume) 9 mg/dL 7-18 Serum or plasma creatinine measurement (mass/volume) 0.77 mg/dL 0.60-1.30 Serum or plasma urea nitrogen/creatinine mass ratio 12 NRG Serum or plasma creatinine measurement with calculation of estimated glomerular filtration rate > NRG Serum or plasma glucose measurement (mass/volume) 93 mg/dL 70-105 Serum or plasma calcium measurement (mass/volume) 9.8 mg/dL 8.5-10.1 Serum or plasma total bilirubin measurement (mass/volume) 0.4 mg/dL 0.1-1.0 Serum or plasma alkaline phosphatase measurement (enzymatic activity/volume) 63 U/L 40-136 Serum or plasma aspartate aminotransferase measurement (enzymatic activity/ volume) 17 U/L 5-34 Serum or plasma alanine aminotransferase measurement (enzymatic activity/volume ) 12 U/L 0-55 Serum or plasma protein measurement (mass/volume) 7.8 g/dL 6.4-8.2 Serum or plasma albumin measurement (mass/volume) 4.3 g/dL 3.2-4.5 Serum or plasma thyrotropin measurement by detection limit <=0.05 miu/l (units/ volume) - 10/21/16 02:47 Serum or plasma thyrotropin measurement by detection limit <=0.05 miu/l (units/ volume) 1.83 u[iU]/mL 0.35-4.94 Serum or plasma salicylates measurement (mass/volume) - 10/21/16 02:47 Serum or plasma salicylates measurement (mass/volume) < mg/dL 5.0-20.0 Serum or plasma acetaminophen measurement (mass/volume) - 10/21/16 02:47 Serum or plasma acetaminophen measurement (mass/volume) < ug/mL 10-30 Serum or plasma ethanol measurement (mass/volume) - 10/21/16 02:47 Serum or plasma ethanol measurement (mass/volume) < mg/dL <10 Complete blood count (CBC) with automated white blood cell (WBC) differential - 10/22/16 05:35 Blood leukocytes automated count (number/volume) 8.8 10*3/uL 4.3-11.0 Blood erythrocytes automated count (number/volume) 4.28 10*6/uL 4.35-5.85 Venous blood hemoglobin measurement (mass/volume) 13.0 g/dL 11.5-16.0 Blood hematocrit (volume fraction) 39 % 35-52 Automated erythrocyte mean corpuscular volume 90 [foz_us] 80-99 Automated erythrocyte mean corpuscular hemoglobin (mass per erythrocyte) 30 pg 25-34 Automated erythrocyte mean corpuscular hemoglobin concentration measurement ( mass/volume) 34 g/dL 32-36 Automated erythrocyte distribution width ratio 14.0 % 10.0-14.5 Automated blood platelet count (count/volume) 360 10*3/uL 130-400 Automated blood platelet mean volume measurement 9.3 [foz_us] 7.4-10.4 Automated blood neutrophils/100 leukocytes 53 % 42-75 Automated blood lymphocytes/100 leukocytes 35 % 12-44 Blood monocytes/100 leukocytes 9 % 0-12 Automated blood eosinophils/100 leukocytes 2 % 0-10 Automated blood basophils/100 leukocytes 0 % 0-10 Blood neutrophils automated count (number/volume) 4.7 10*3 1.8-7.8 Blood lymphocytes automated count (number/volume) 3.1 10*3 1.0-4.0 Blood monocytes automated count (number/volume) 0.8 10*3 0.0-1.0 Automated eosinophil count 0.2 10*3/uL 0.0-0.3 Automated blood basophil count (count/volume) 0.0 10*3/uL 0.0-0.1 Comprehensive metabolic panel - 10/22/16 05:35 Serum or plasma sodium measurement (moles/volume) 139 mmol/L 135-145 Serum or plasma potassium measurement (moles/volume) 3.6 mmol/L 3.6-5.0 Serum or plasma chloride measurement (moles/volume) 108 mmol/L 98-107 Carbon dioxide 23 mmol/L 21-32 Serum or plasma anion gap determination (moles/volume) 8 mmol/L 5-14 Serum or plasma urea nitrogen measurement (mass/volume) 7 mg/dL 7-18 Serum or plasma creatinine measurement (mass/volume) 0.69 mg/dL 0.60-1.30 Serum or plasma urea nitrogen/creatinine mass ratio 10 NRG Serum or plasma creatinine measurement with calculation of estimated glomerular filtration rate > NRG Serum or plasma glucose measurement (mass/volume) 105 mg/dL 70-105 Serum or plasma calcium measurement (mass/volume) 8.8 mg/dL 8.5-10.1 Serum or plasma total bilirubin measurement (mass/volume) 0.4 mg/dL 0.1-1.0 Serum or plasma alkaline phosphatase measurement (enzymatic activity/volume) 52 U/L 40-136 Serum or plasma aspartate aminotransferase measurement (enzymatic activity/ volume) 14 U/L 5-34 Serum or plasma alanine aminotransferase measurement (enzymatic activity/volume ) 10 U/L 0-55 Serum or plasma protein measurement (mass/volume) 5.7 g/dL 6.4-8.2 Serum or plasma albumin measurement (mass/volume) 3.4 g/dL 3.2-4.5 Encounters ACCT No. Visit Date/Time Discharge Status Pt. Type Provider Facility Loc./Unit Complaint [id number] 05/29/2014 07:54:00 05/29/2014 23:59:59 CLS Outpatient DANK SIGALA PHD [id number] 04/16/2014 10:49:00 04/16/2014 23:59:59 CLS Outpatient DANK SIGALA PHD [id number] 10/21/2016 04:20:00 10/22/2016 13:50:00 DIS Inpatient YRIS CARDOZAYAJAIRA [facility] 4TH SUICIDE ATTEMPT; INTENTIONAL DRUG OVERDOSE;REPORTED [id number] 03/14/2016 00:16:00 03/14/2016 01:55:00 DIS Emergency MICHELLE CARDOZO DO [facility] ER BACK PAIN EAR PROBLEMS [id number] 02/11/2016 22:12:00 02/11/2016 23:42:00 DIS Emergency ASHVIN SALAS MD [facility] ER N,V,D [id number] 06/20/2015 02:04:00 06/20/2015 03:12:00 DIS Emergency BERTO MARTINEZ MD [facility] ER CP [id number] 11/12/2014 09:45:00 11/12/2014 12:29:00 DIS Emergency ASHVIN SALAS MD [facility] ER ABD PAIN [id number] 10/10/2014 08:58:00 10/10/2014 23:59:59 CLS Outpatient HARLEY LIN MD [facility] RAD CHRONIC LBP [id number] 10/02/2014 09:38:00 10/02/2014 23:59:59 CLS Outpatient HARLEY LIN MD [facility] RAD CHRONIC LBP [id number] 09/09/2014 15:07:00 09/09/2014 23:59:59 CLS Preadmit HARLEY LIN MD [facility] REHAB [id number] 06/29/2014 03:45:00 06/29/2014 05:48:00 DIS Emergency ASHVIN SALAS MD [facility] ER LEG PAIN [id number] 03/27/2014 20:04:00 03/27/2014 20:41:00 DIS Emergency CHIKA FAITH, GENESIS Motley [facility] ER BACK PAIN [id number] 12/04/2013 21:35:00 12/04/2013 22:28:00 DIS Emergency CHIKA FAITH, GENESIS T [facility] ER DEPRESSION [id number] 07/28/2013 14:16:00 07/28/2013 16:50:00 DIS Emergency LINETTE FLORES [facility] ER KNEE PAIN [id number] 03/01/2013 02:10:00 03/01/2013 03:17:00 DIS Emergency BERTO MARTINEZ MD [facility] ER ABD PAIN [id number] 02/06/2013 23:15:00 02/07/2013 02:15:00 DIS Emergency CHIKA FAITH, GENESIS T [facility] ER ABD PAIN [id number] 07/20/2012 22:11:00 07/22/2012 09:35:00 DIS Inpatient FABY LAMBERT MD [facility] WS UTI,ABD PAIN,HIGH RISK [id number] 06/25/2012 05:02:00 06/25/2012 09:36:00 DIS Emergency ASHVIN SALAS MD [facility] ER ABD PAIN, DIZZY; 14WKS PREG [id number] 04/25/2017 22:57:00 ACT Emergency MICHELLE CARDOZO DO K [facility] ER DEPRESSED [id number] 06/29/2014 03:46:00 Document Registration [id number] 06/29/2014 03:45:00 Document Registration [id number] 06/29/2014 03:45:00 Document Registration [id number] 06/29/2014 03:45:00 Document Registration [id number] 06/29/2014 03:45:00 Document Registration [id number] 04/13/2014 18:50:00 Document Registration [id number] 05/08/2012 19:24:00 Document Registration [id number] 05/04/2012 19:28:00 Document Registration [id number] 04/11/2012 10:27:00 Document Registration [id number] 12/20/2011 07:49:00 Document Registration [id number] 11/06/2010 21:22:00 Document Registration [id number] 09/01/2010 00:53:00 Document Registration [id number] 08/08/2010 20:19:00 Document Registration [id number] 06/02/2010 00:38:00 Document Registration [id number] 05/24/2010 08:36:00 Document Registration [id number] 05/03/2010 12:00:00 Document Registration [id number] 01/10/2010 20:55:00 Document Registration [id number] 01/08/2010 15:52:00 Document Registration [id number] 01/08/2010 00:52:00 Document Registration [id number] 09/15/2009 21:37:00 Document Registration [id number] 08/29/2009 04:28:00 Document Registration [id number] 08/05/2009 21:55:00 Document Registration [id number] 08/05/2009 00:48:00 Document Registration
[2017-04-25 23:34] LABS: AMPHETAMINE SCREEN, URINE POSITIVE (NEGATIVE); BARBITURATE SCREEN URINE NEGATIVE (NEGATIVE); BENZODIAZEPINES SCREEN URINE NEGATIVE (NEGATIVE); CANNABINOID SCREEN, URINE NEGATIVE (NEGATIVE); COCAINE SCREEN URINE NEGATIVE (NEGATIVE); METHADONE STAT NEGATIVE (NEGATIVE); METHAMPHETAMINE SCREEN URINE S POSITIVE (NEGATIVE); OPIATE SCREEN URINE NEGATIVE (NEGATIVE); OXYCODONE STAT NEGATIVE (NEGATIVE); PROPOXYPHENE STAT NEGATIVE (NEGATIVE); TRICYCLIC ANTIDEPRESSANTS SCRE NEGATIVE (NEGATIVE)
[2017-04-26 00:22] LABS: BASOPHILS # (AUTO) 0.1 10^3/uL (0.0-0.1); BASOPHILS % (AUTO) 1 % (0-10); EOSINOPHILS # (AUTO) 0.1 10^3/uL (0.0-0.3); EOSINOPHILS % (AUTO) 1 % (0-10); HEMATOCRIT 42 % (35-52); HEMOGLOBIN 14.6 G/DL (11.5-16.0); LYMPHOCYTES # (AUTO) 2.2 X 10^3 (1.0-4.0); LYMPHOCYTES % (AUTO) 20 % (12-44); MEAN CORPUSCULAR HEMOGLOBIN 31 PG (25-34); MEAN CORPUSCULAR HGB CONC 35 G/DL (32-36); MEAN CORPUSCULAR VOLUME 90 FL (80-99); MEAN PLATELET VOLUME 8.9 FL (7.4-10.4); MONOCYTES # (AUTO) 0.7 X 10^3 (0.0-1.0); MONOCYTES % (AUTO) 7 % (0-12); NEUTROPHILS # (AUTO) 7.9 X 10^3 (1.8-7.8); NEUTROPHILS % (AUTO) 72 % (42-75); PLATELET COUNT 435 10^3/uL (130-400); RED BLOOD COUNT 4.71 10^6/uL (4.35-5.85)
[2017-04-26 00:40] LABS: BILIRUBIN,URINE NEGATIVE (NEGATIVE); COLOR,URINE YELLOW; GLUCOSE, URINE (UA) NEGATIVE (NEGATIVE); KETONES,URINE NEGATIVE (NEGATIVE); LEUKOCYTE ESTERASE ,URINE 3+ (NEGATIVE); NITRITE,URINE NEGATIVE (NEGATIVE); PH,URINE 6 (5-9); PROTEIN,URINE NEGATIVE (NEGATIVE); UROBILINOGEN,URINE NORMAL (NORMAL)
[2017-04-26 00:43] LABS: ACETAMINOPHEN < 10 UG/ML (10-30); ALANINE AMINOTRANSFERASE 16 U/L (0-55); ALBUMIN 4.1 GM/DL (3.2-4.5); ALKALINE PHOSPHATASE 60 U/L (40-136); BILIRUBIN,TOTAL 0.5 MG/DL (0.1-1.0); BUN/CREATININE RATIO 8; CALCIUM 9.9 MG/DL (8.5-10.1); CARBON DIOXIDE 25 MMOL/L (21-32); CHLORIDE 107 MMOL/L (98-107); CREATININE SERUM 0.73 MG/DL (0.60-1.30); GFR ESTIMATED > 60; GLUCOSE 83 MG/DL (70-105); POTASSIUM 3.6 MMOL/L (3.6-5.0); SALICYLATE < 5.0 MG/DL (5.0-20.0); SODIUM 140 MMOL/L (135-145); TOTAL PROTEIN 7.1 GM/DL (6.4-8.2)
[2017-04-26 00:46] LABS: BACTERIA,URINE FEW /HPF; CLARITY,URINE SLIGHTLY CLOUDY; SQUAMOUS EPITHELIAL CELL,UR 25-50 /HPF
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
[2017-04-26 01:02] LABS: TSH (THYROID ANALYZER) 0.59 UIU/ML (0.35-4.94)
[2017-04-26 02:06] VITALS: BP 125/81
== END 2017-04-26 02:06 | disposition home or self-care (01) ==
LOC: EDUNIT# 22:55 → ER 22:57
DX: F32.9 Major depressive disorder, single episode, unspecified (principal); R45.851 Suicidal ideations; J45.909 Unspecified asthma, uncomplicated; G43.909 Migraine, unspecified, not intractable, without status migrainosus; F15.90 Other stimulant use, unspecified, uncomplicated; F17.210 Nicotine dependence, cigarettes, uncomplicated; Z98.51 Tubal ligation status; Z87.59 Personal history of other complications of pregnancy, childbirth and the puerperium; Z90.49 Acquired absence of other specified parts of digestive tract; Z88.5 Allergy status to narcotic agent; Z88.6 Allergy status to analgesic agent; Z88.8 Allergy status to other drugs, medicaments and biological substances; Z88.1 Allergy status to other antibiotic agents
CPT/HCPCS: 36415; 80053; 80306; 80320; 80329; 81000; 84443; 84703; 85025; 87088; 93005

== ENCOUNTER 2017-10-07 21:33 | Emergency (ER) | payer MEDICARE, MEDICAID ==
[~2017-10-07] VITALS: Ht 162.6 cm; Wt 72.6 kg
[2017-10-07] MEDS ORDERED: ACETAMINOPHEN 500 MG TAB (TYLENOL) PO ONE (22:15)
[2017-10-07] MEDS ORDERED: IBUPROFEN 800 MG (MOTRIN) TAB PO ONE (22:15)
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
[2017-10-07 23:25] VITALS: BP 124/75
--- NOTE | 2017-10-08 07:38 | Diagnostic Imaging Report ---
INDICATION: Right hand pain, middle finger. Twisting injury. EXAMINATION: Right hand 10/07/2017 FINDINGS: 2 views of the hand There is a vague lucency seen involving the proximal aspect of the third distal phalanx. This could be nutrient foramen although a fracture line is not excluded. Correlate for point tenderness to the region. The remaining osseous structures appear intact. There are no dislocations. Soft tissues are grossly unremarkable. IMPRESSION: 1. Possible fracture of the distal first phalanx; however, nutrient foramen is also possible, correlate clinically. Dictated by: Dictated on workstation # [id number]
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
== END 2017-10-07 23:25 | disposition home or self-care (01) ==
LOC: EDUNIT# 21:33 → ER 21:34
DX: S63.612A Unspecified sprain of right middle finger, initial encounter (principal); J45.909 Unspecified asthma, uncomplicated; G43.909 Migraine, unspecified, not intractable, without status migrainosus; F41.9 Anxiety disorder, unspecified; F32.9 Major depressive disorder, single episode, unspecified; R40.2142 Coma scale, eyes open, spontaneous, at arrival to emergency department; R40.2252 Coma scale, best verbal response, oriented, at arrival to emergency department; R40.2362 Coma scale, best motor response, obeys commands, at arrival to emergency department; Z87.440 Personal history of urinary (tract) infections; Z98.51 Tubal ligation status; Z88.8 Allergy status to other drugs, medicaments and biological substances; Z88.5 Allergy status to narcotic agent; Z88.1 Allergy status to other antibiotic agents; Z90.49 Acquired absence of other specified parts of digestive tract; Z98.890 Other specified postprocedural states; Y04.8XXA Assault by other bodily force, initial encounter
CPT/HCPCS: 73130; 73140

== ENCOUNTER 2020-06-24 04:16 | Emergency (ER) | payer MEDICARE, MEDICAID ==
[~2020-06-24] VITALS: Ht 162.5 cm; Wt 72.6 kg
[2020-06-24 04:28] LABS: BASOPHILS # (AUTO) 0.1 10^3/uL (0.0-0.1); BASOPHILS % (AUTO) 1 % (0-10); EOSINOPHILS # (AUTO) 0.1 10^3/uL (0.0-0.3); EOSINOPHILS % (AUTO) 1 % (0-10); HEMATOCRIT 43 % (35-52); HEMOGLOBIN 14.3 g/dL (11.5-16.0); LYMPHOCYTES # (AUTO) 2.4 10^3/uL (1.0-4.0); LYMPHOCYTES % (AUTO) 19 % (12-44); MEAN CORPUSCULAR HEMOGLOBIN 30 pg (25-34); MEAN CORPUSCULAR HGB CONC 33 g/dL (32-36); MEAN CORPUSCULAR VOLUME 89 fL (80-99); MEAN PLATELET VOLUME 9.4 fL (9.0-12.2); MONOCYTES % (AUTO) 7 % (0-12); NEUTROPHILS # (AUTO) 9.6 10^3/uL (1.8-7.8); NEUTROPHILS % (AUTO) 73 % (42-75); PLATELET COUNT 444 10^3/uL (130-400); WHITE BLOOD COUNT 13.1 10^3/uL (4.3-11.0)
[2020-06-24 04:41] LABS: CHLORIDE 108 MMOL/L (98-107); POTASSIUM 3.7 MMOL/L (3.6-5.0); SODIUM 142 MMOL/L (135-145)
[2020-06-24 04:42] LABS: ALBUMIN 4.2 GM/DL (3.2-4.5)
[2020-06-24 04:43] LABS: CALCIUM 9.6 MG/DL (8.5-10.1)
[2020-06-24 04:44] LABS: GLUCOSE 102 MG/DL (70-105); TOTAL PROTEIN 7.6 GM/DL (6.4-8.2)
[2020-06-24 04:45] LABS: CARBON DIOXIDE 23 MMOL/L (21-32)
[2020-06-24 04:46] LABS: BILIRUBIN,TOTAL 0.2 MG/DL (0.1-1.0)
[2020-06-24 04:48] LABS: ALKALINE PHOSPHATASE 67 U/L (40-136); CREATININE SERUM 0.79 MG/DL (0.60-1.30); GFR ESTIMATED > 60
[2020-06-24 04:49] LABS: BUN/CREATININE RATIO 13
[2020-06-24 04:50] LABS: ACETAMINOPHEN < 10 UG/ML (10-30)
[2020-06-24 04:51] LABS: ALANINE AMINOTRANSFERASE 13 U/L (0-55); SALICYLATE < 5.0 MG/DL (5.0-20.0)
[2020-06-24] MEDS ORDERED: NS IV 1000 ML 1,000 ML IV SCH (05:00)
[2020-06-24] MEDS ORDERED: FAMOTIDINE 20MG/2ML IV (PEPCID) IVP ONE (05:00)
[2020-06-24] MEDS ORDERED: ONDANSETRON 4 MG/2 ML (SDV) Z0FRAN IVP ONE (05:00)
[2020-06-24 06:30] LABS: BILIRUBIN,URINE NEGATIVE (NEGATIVE); CLARITY,URINE SL CLOUDY; COLOR,URINE YELLOW; GLUCOSE, URINE (UA) NEGATIVE (NEGATIVE); KETONES,URINE NEGATIVE (NEGATIVE); LEUKOCYTE ESTERASE ,URINE 1+ (NEGATIVE); NITRITE,URINE POSITIVE (NEGATIVE); PROTEIN,URINE TRACE (NEGATIVE)
[2020-06-24 06:42] LABS: AMPHETAMINE SCREEN, URINE POSITIVE (NEGATIVE); BARBITURATE SCREEN URINE NEGATIVE (NEGATIVE); BENZODIAZEPINES SCREEN URINE NEGATIVE (NEGATIVE); CANNABINOID SCREEN, URINE NEGATIVE (NEGATIVE); COCAINE SCREEN URINE NEGATIVE (NEGATIVE); METHADONE STAT NEGATIVE (NEGATIVE); METHAMPHETAMINE SCREEN URINE S POSITIVE (NEGATIVE); OPIATE SCREEN URINE NEGATIVE (NEGATIVE); OXYCODONE STAT NEGATIVE (NEGATIVE); PROPOXYPHENE STAT NEGATIVE (NEGATIVE); TRICYCLIC ANTIDEPRESSANTS SCRE NEGATIVE (NEGATIVE)
[2020-06-24 06:47] LABS: BACTERIA,URINE MODERATE /HPF; CALCIUM OXALATE CRYSTALS,UR FEW /LPF
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
[2020-06-24] MEDS ORDERED: NITROFURANTOIN 100 MG (MACROBID) CAPSULE PO ONE (07:30)
[2020-06-24] MEDS ORDERED: NITR-65 PO (10:02)
[2020-06-24 10:10] VITALS: BP 140/87
== END 2020-06-24 10:13 | disposition home or self-care (01) ==
LOC: EDUNIT# 04:16 → ER 04:18
DX: T43.222A Poisoning by selective serotonin reuptake inhibitors, intentional self-harm, initial encounter (principal); N39.0 Urinary tract infection, site not specified; F15.10 Other stimulant abuse, uncomplicated; F32.9 Major depressive disorder, single episode, unspecified; J45.909 Unspecified asthma, uncomplicated; Z88.5 Allergy status to narcotic agent; Z88.1 Allergy status to other antibiotic agents; Z88.8 Allergy status to other drugs, medicaments and biological substances; Z87.891 Personal history of nicotine dependence; X83.8XXA Intentional self-harm by other specified means, initial encounter
CPT/HCPCS: 80053; 80306; 81000; 83690; 85025; 87077; 87088; 87186; 93005; 93041; 99284; G0480 ×3; 36415; 80320; 80329

== ENCOUNTER 2020-08-24 00:11 | Emergency (ER) | payer MEDICARE, MEDICAID ==
[~2020-08-24] VITALS: Ht 162.5 cm; Wt 87.3 kg
[~2020-08-24 00:11] MED LIST changes: +DOXY-311 PO; -DOXY100C42 PO
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
[2020-08-24 01:11] LABS: BASOPHILS # (AUTO) 0.1 10^3/uL (0.0-0.1); BASOPHILS % (AUTO) 1 % (0-10); EOSINOPHILS # (AUTO) 0.3 10^3/uL (0.0-0.3); EOSINOPHILS % (AUTO) 3 % (0-10); HEMATOCRIT 41 % (35-52); HEMOGLOBIN 13.6 g/dL (11.5-16.0); LYMPHOCYTES # (AUTO) 3.1 10^3/uL (1.0-4.0); LYMPHOCYTES % (AUTO) 29 % (12-44); MEAN CORPUSCULAR HEMOGLOBIN 30 pg (25-34); MEAN CORPUSCULAR HGB CONC 33 g/dL (32-36); MEAN CORPUSCULAR VOLUME 91 fL (80-99); MEAN PLATELET VOLUME 9.5 fL (9.0-12.2); MONOCYTES # (AUTO) 0.9 10^3/uL (0.0-1.0); MONOCYTES % (AUTO) 8 % (0-12); NEUTROPHILS # (AUTO) 6.3 10^3/uL (1.8-7.8); NEUTROPHILS % (AUTO) 59 % (42-75); PLATELET COUNT 406 10^3/uL (130-400); WHITE BLOOD COUNT 10.6 10^3/uL (4.3-11.0)
[2020-08-24 01:20] LABS: BILIRUBIN,URINE NEGATIVE (NEGATIVE); CLARITY,URINE CLEAR; COLOR,URINE YELLOW; GLUCOSE, URINE (UA) NEGATIVE (NEGATIVE); KETONES,URINE NEGATIVE (NEGATIVE); LEUKOCYTE ESTERASE ,URINE TRACE (NEGATIVE); NITRITE,URINE NEGATIVE (NEGATIVE); PROTEIN,URINE NEGATIVE (NEGATIVE)
[2020-08-24 01:27] LABS: CHLORIDE 107 MMOL/L (98-107)
[2020-08-24 01:28] LABS: ALBUMIN 3.8 GM/DL (3.2-4.5); POTASSIUM 3.6 MMOL/L (3.6-5.0); SODIUM 140 MMOL/L (135-145)
[2020-08-24 01:29] LABS: BACTERIA,URINE FEW /HPF; SQUAMOUS EPITHELIAL CELL,UR 0-2 /HPF
[2020-08-24 01:29] LABS: CALCIUM 8.9 MG/DL (8.5-10.1)
[2020-08-24 01:30] LABS: GLUCOSE 67 MG/DL (70-105)
[2020-08-24] MEDS ORDERED: ONDANSETRON 4 MG (ZOFRAN) ORAL DISSOLVE TAB PO ONE (01:30)
[2020-08-24 01:31] LABS: CARBON DIOXIDE 22 MMOL/L (21-32)
[2020-08-24 01:32] LABS: AMPHETAMINE SCREEN, URINE NEGATIVE (NEGATIVE); BARBITURATE SCREEN URINE NEGATIVE (NEGATIVE); BENZODIAZEPINES SCREEN URINE NEGATIVE (NEGATIVE); CANNABINOID SCREEN, URINE NEGATIVE (NEGATIVE); COCAINE SCREEN URINE NEGATIVE (NEGATIVE); METHADONE STAT NEGATIVE (NEGATIVE); METHAMPHETAMINE SCREEN URINE S NEGATIVE (NEGATIVE); OPIATE SCREEN URINE NEGATIVE (NEGATIVE); OXYCODONE STAT NEGATIVE (NEGATIVE); PROPOXYPHENE STAT NEGATIVE (NEGATIVE); TRICYCLIC ANTIDEPRESSANTS SCRE NEGATIVE (NEGATIVE)
[2020-08-24 01:32] LABS: BILIRUBIN,TOTAL 0.3 MG/DL (0.1-1.0)
[2020-08-24 01:34] LABS: ALKALINE PHOSPHATASE 57 U/L (40-136); CREATININE SERUM 0.86 MG/DL (0.60-1.30); GFR ESTIMATED > 60
[2020-08-24 01:35] LABS: BUN/CREATININE RATIO 12
[2020-08-24 01:37] LABS: ALANINE AMINOTRANSFERASE 10 U/L (0-55); SALICYLATE < 5.0 MG/DL (5.0-20.0)
[2020-08-24 01:39] LABS: ACETAMINOPHEN < 10 UG/ML (10-30)
[2020-08-24 01:52] VITALS: BP 131/85
== END 2020-08-24 01:58 | disposition home or self-care (01) ==
LOC: EDUNIT# 00:11 → ER 00:15
DX: R45.851 Suicidal ideations (principal); J45.909 Unspecified asthma, uncomplicated; Z63.9 Problem related to primary support group, unspecified
CPT/HCPCS: 80053; 80306; 81000; 84703; 85025; 87077; 87088; 93005; 99283; G0480 ×3; 36415; 80320; 80329

== ENCOUNTER 2020-10-14 16:00 | Emergency (ER) | payer MEDICARE, MEDICAID ==
[~2020-10-14] VITALS: Ht 162 cm; Wt 72.0 kg
[2020-10-14 16:47] LABS: BASOPHILS # (AUTO) 0.1 10^3/uL (0.0-0.1); BASOPHILS % (AUTO) 1 % (0-10); EOSINOPHILS # (AUTO) 0.2 10^3/uL (0.0-0.3); EOSINOPHILS % (AUTO) 2 % (0-10); HEMATOCRIT 39 % (35-52); HEMOGLOBIN 12.9 g/dL (11.5-16.0); LYMPHOCYTES # (AUTO) 2.1 10^3/uL (1.0-4.0); LYMPHOCYTES % (AUTO) 19 % (12-44); MEAN CORPUSCULAR HEMOGLOBIN 30 pg (25-34); MEAN CORPUSCULAR HGB CONC 33 g/dL (32-36); MEAN CORPUSCULAR VOLUME 93 fL (80-99); MEAN PLATELET VOLUME 9.5 fL (9.0-12.2); MONOCYTES # (AUTO) 1.1 10^3/uL (0.0-1.0); MONOCYTES % (AUTO) 9 % (0-12); NEUTROPHILS # (AUTO) 7.9 10^3/uL (1.8-7.8); NEUTROPHILS % (AUTO) 69 % (42-75); PLATELET COUNT 408 10^3/uL (130-400); WHITE BLOOD COUNT 11.4 10^3/uL (4.3-11.0)
--- NOTE | 2020-10-14 16:55 | Diagnostic Imaging Report ---
INDICATION: Chest pain. Frontal chest obtained at 4:55 p.m. and compared to 03/14/2016. FINDINGS: Heart and mediastinal silhouette are normal in appearance. The lungs are clear. There is no pneumothorax or pleural fluid collection. IMPRESSION: Negative chest. Dictated by: Dictated on workstation # [id number]
[2020-10-14 17:02] LABS: POTASSIUM 4.2 MMOL/L (3.6-5.0)
[2020-10-14 17:03] LABS: CALCIUM 9.6 MG/DL (8.5-10.1); INR 0.9 (0.8-1.4); PROTHROMBIN TIME PATIENT 12.8 SEC (12.2-14.7)
[2020-10-14 17:04] LABS: TOTAL PROTEIN 7.6 GM/DL (6.4-8.2)
[2020-10-14 17:06] LABS: BILIRUBIN,TOTAL 0.4 MG/DL (0.1-1.0)
[2020-10-14 17:08] LABS: CREATININE SERUM 1.11 MG/DL (0.60-1.30)
--- NOTE | 2020-10-14 17:08 | ED General ---
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 STATES SHE BECAME DIZZY AND FELT LIKE SHE WAS GOING TO PASS OUT. PT ALSO COMPLAINS OF CHEST PAIN THAT JUST STARTED. Source of Information: Patient Exam Limitations: No Limitations History of Present Illness Date Seen by Provider: Oct 14, 2020 Time Seen by Provider: 17:07 Initial Comments To ER with reports of chest pain and general weakness ER. Timing/Duration: 1-2 Days Severity: Moderate Associated Systoms: Denies Symptoms Allergies and Home Medications Allergies Coded Allergies: chlorpheniramine (Verified Allergy, Mild, 12/20/07) codeine (Unverified Allergy, Mild, RASH, 08/15/08) guaifenesin (Unverified Allergy, Mild, RASH, 08/15/08) phenylephrine (Verified Allergy, Mild, 12/20/07) phenylpropanolamine (Verified Allergy, Mild, 12/20/07) phenyltoloxamine (Verified Allergy, Mild, 12/20/07) cephalexin (Unverified Adverse Reaction, Intermediate, IRRITABLITY, TENSE, 05/08/05) Uncoded Allergies: NALDICON COUGH SYRUP (Adverse Reaction, Intermediate, IRRITABILITY, TENSE, 05/08/05) Home Medications Nitrofurantoin Monohyd/M-Cryst 100 Mg Capsule, 1 TAB PO BID Prescribed by: CHRISSY SALCEDO on 06/24/20 1002 Patient Home Medication List Home Medication List Reviewed: Yes Review of Systems Review of Systems Constitutional: see HPI EENTM: see HPI Respiratory: no symptoms reported Cardiovascular: no symptoms reported Genitourinary: no symptoms reported Musculoskeletal: no symptoms reported Skin: no symptoms reported Psychiatric/Neurological: No Symptoms Reported Hematologic/Lymphatic: No Symptoms Reported Past Oeapupl-Bcwtsq-Nyevpf Hx Patient Social History Smoking Status: Never a Smoker Use of E-Cig and/or Vaping Alessandro: Never a User Substance use?: No Immunizations Up To Date Tetanus Booster (TDap): Unknown Seasonal Allergies Seasonal Allergies: No Past Medical History Surgeries: Yes (BMT'S) Appendectomy, Section, Ear Surgery, Tubal Ligation Respiratory: Yes Asthma Cardiac: No Neurological: Yes Headaches /Migraines Reproductive Disorders: Yes (MULTIPLE MISCARRIAGES; SEVERE PRE-ECLAMPSIA) Female 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 9.0oz. [id number]; 27.00 BMI Method:Stated General Appearance: No Apparent Distress, WD/WN Eyes: Bilateral Eye Normal Inspection, Bilateral Eye PERRL, Bilateral Eye EOMI Neck: Full Range of Motion, Normal Inspection Respiratory: No Accessory Muscle Use, No Respiratory Distress Cardiovascular: Regular Rate, Rhythm, Normal Peripheral Pulses Gastrointestinal: Normal Bowel Sounds, Non Tender, Soft Extremity: Normal Capillary Refill, Normal Inspection Neurologic/Psychiatric: Alert, Oriented x3 Skin: Normal Color, Warm/Dry Progress/Results/Core Measures Suspected Sepsis SIRS Temperature: Pulse: 104 Respiratory Rate: 16 Laboratory Tests 10/14/20 16:39: White Blood Count 11.4H Blood Pressure 128 /73 Mean: 91 Laboratory Tests 10/14/20 16:39: Creatinine 1.11, INR Comment 0.9, Platelet Count 408H, Total Bilirubin 0.4 Results/Orders Lab Results Laboratory Tests Test 10/14/20 16:39 10/14/20 17:46 Range/Units White Blood Count 11.4 H 4.3-11.0 10^3/uL Red Blood Count 4.24 3.80-5.11 10^6/uL Hemoglobin 12.9 11.5-16.0 g/dL Hematocrit 39 35-52 % Mean Corpuscular Volume 93 80-99 fL Mean Corpuscular Hemoglobin 30 25-34 pg Mean Corpuscular Hemoglobin Concent 33 32-36 g/dL Red Cell Distribution Width 15.0 H 10.0-14.5 % Platelet Count 408 H 130-400 10^3/uL Mean Platelet Volume 9.5 9.0-12.2 fL Immature Granulocyte % (Auto) 0 % Neutrophils (%) (Auto) 69 42-75 % Lymphocytes (%) (Auto) 19 12-44 % Monocytes (%) (Auto) 9 0-12 % Eosinophils (%) (Auto) 2 0-10 % Basophils (%) (Auto) 1 0-10 % Neutrophils # (Auto) 7.9 H 1.8-7.8 10^3/uL Lymphocytes # (Auto) 2.1 1.0-4.0 10^3/uL Monocytes # (Auto) 1.1 H 0.0-1.0 10^3/uL Eosinophils # (Auto) 0.2 0.0-0.3 10^3/uL Basophils # (Auto) 0.1 0.0-0.1 10^3/uL Immature Granulocyte # (Auto) 0.0 0.0-0.1 10^3/uL Prothrombin Time 12.8 12.2-14.7 SEC INR Comment 0.9 0.8-1.4 Activated Partial Thromboplast Time 26 24-35 SEC D-Dimer 0.79 H 0.00-0.49 UG/ML Sodium Level 143 135-145 MMOL/L Potassium Level 4.2 3.6-5.0 MMOL/L Chloride Level 110 H 98-107 MMOL/L Carbon Dioxide Level 22 21-32 MMOL/L Anion Gap 11 5-14 MMOL/L Blood Urea Nitrogen 14 7-18 MG/DL Creatinine 1.11 0.60-1.30 MG/DL Estimat Glomerular Filtration Rate 69 BUN/Creatinine Ratio 13 Glucose Level 81 70-105 MG/DL Calcium Level 9.6 8.5-10.1 MG/DL Corrected Calcium 9.6 8.5-10.1 MG/DL Magnesium Level 1.6 1.6-2.4 MG/DL Total Bilirubin 0.4 0.1-1.0 MG/DL Aspartate Amino Transf (AST/SGOT) 35 H 5-34 U/L Alanine Aminotransferase (ALT/SGPT) 33 0-55 U/L Alkaline Phosphatase 67 40-136 U/L Myoglobin 58.0 10.0-92.0 NG/ML Troponin I < 0.028 <0.028 NG/ML B-Type Natriuretic Peptide 25.0 <100.0 PG/ML Total Protein 7.6 6.4-8.2 GM/DL Albumin 4.0 3.2-4.5 GM/DL Serum Test, Qualitative NEGATIVE NEGATIVE Urine Color YELLOW Urine Clarity CLEAR Urine pH 5.5 5-9 Urine Specific [place] 1.010 L 1.016-1.022 Urine Protein NEGATIVE NEGATIVE Urine Glucose (UA) NEGATIVE NEGATIVE Urine Ketones NEGATIVE NEGATIVE Urine Nitrite NEGATIVE NEGATIVE Urine Bilirubin NEGATIVE NEGATIVE Urine Urobilinogen 1.0 < = 1.0 MG/DL Urine Leukocyte Esterase 2+ H NEGATIVE Urine RBC (Auto) NEGATIVE NEGATIVE Urine RBC NONE /HPF Urine WBC 10-25 H /HPF Urine Squamous Epithelial Cells 10-25 H /HPF Urine Renal Epithelial Cells NONE /HPF Urine Crystals NONE /LPF Urine Bacteria NEGATIVE /HPF Urine Casts NONE /LPF Urine Mucus NEGATIVE /LPF Urine Culture Indicated NO Urine Opiates Screen NEGATIVE NEGATIVE Urine Oxycodone Screen NEGATIVE NEGATIVE Urine Methadone Screen NEGATIVE NEGATIVE Urine Propoxyphene Screen NEGATIVE NEGATIVE Urine Barbiturates Screen NEGATIVE NEGATIVE Ur Tricyclic Antidepressants Screen NEGATIVE NEGATIVE Urine Phencyclidine Screen NEGATIVE NEGATIVE Urine Amphetamines Screen POSITIVE H NEGATIVE Urine Methamphetamines Screen POSITIVE H NEGATIVE Urine Benzodiazepines Screen NEGATIVE NEGATIVE Urine Cocaine Screen NEGATIVE NEGATIVE Urine Cannabinoids Screen NEGATIVE NEGATIVE My Orders Orders - NISA CHISHOLM WEARING [employer]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[employer]SEMBLER Cbc With Automated Diff (10/14/20 16:33) Magnesium (10/14/20 16:33) Chest 1 View, Ap/Pa Only (10/14/20 16:33) Ekg Tracing (10/14/20 16:33) Comprehensive Metabolic Panel (10/14/20 16:33) Myoglobin Serum (10/14/20 16:33) Protime With Inr (10/14/20 16:33) Partial Thromboplastin Time (10/14/20 16:33) O2 (10/14/20 16:33) Monitor-Rhythm Ecg Trace Only (10/14/20 16:33) Lipid Panel (10/15/20 06:00) Ed Iv/Invasive Line Start (10/14/20 16:33) BNP (10/14/20 16:33) Fibrin Degradation Products (10/14/20 16:33) Troponin I (10/14/20 16:33) Hcg,Qualitative Serum (10/14/20 16:33) Ua Culture If Indicated (10/14/20 16:44) Drug Screen Stat (Urine) (10/14/20 16:44) Ct Angio Chest W (10/14/20 17:29) Lactated Ringers (Lr 1000 Ml Iv Solution (10/14/20 17:30) Levofloxacin Tablet (Levaquin Tablet) (10/14/20 18:15) Vital Signs/I&O 10/14/20 16:05 Temp 36.9 Pulse 104 Resp 16 B/P (MAP) 128/73 (91) Pulse Ox 100 O2 Delivery Room Air Capillary Refill : Less Than 3 Seconds Blood Pressure Mean: 91 Departure Impression Primary Impression: Methamphetamine abuse Disposition: 01 HOME, SELF-CARE Condition: Stable Departure-Patient Inst. Decision time for Depature: 18:20 Referrals: YAJAIRA ARNDT DO (PCP/Family) Primary Care Physician Patient Instructions: NO INSTRUCTIONS GIVEN NISA CHISHOLM APRN Oct 14, 2020 17:07
[2020-10-14 17:11] LABS: MAGNESIUM 1.6 MG/DL (1.6-2.4)
[2020-10-14] MEDS ORDERED: LACTATED RINGERS 1,000 ML IV SCH (17:30)
[2020-10-14 17:51] LABS: BILIRUBIN,URINE NEGATIVE (NEGATIVE); CLARITY,URINE CLEAR; COLOR,URINE YELLOW; GLUCOSE, URINE (UA) NEGATIVE (NEGATIVE); KETONES,URINE NEGATIVE (NEGATIVE); LEUKOCYTE ESTERASE ,URINE 2+ (NEGATIVE); NITRITE,URINE NEGATIVE (NEGATIVE); PH,URINE 5.5 (5-9); PROTEIN,URINE NEGATIVE (NEGATIVE)
--- NOTE | 2020-10-14 17:54 | Diagnostic Imaging Report ---
PROCEDURE: CT angiography of the chest with contrast. TECHNIQUE: Multiple contiguous axial images were obtained through the chest after uneventful bolus administration of intravenous contrast. 3D reconstructed CTA MIP acquisitions were also performed. Auto Exposure Controls were utilized during the CT exam to meet ALARA standards for radiation dose reduction. INDICATION: Dizziness. FINDINGS: There are no primary nodules, masses or infiltrates. There is no pleural or pericardial fluid. There is no pneumothorax. There is no pathologically enlarged adenopathy in the chest. The thoracic aorta is normal in caliber and without evidence of dissection. There are no filling defects seen within the pulmonary arteries to suggest a pulmonary embolism. The visualized intraabdominal structures are unremarkable. The osseous structures are unremarkable. IMPRESSION: No acute abnormality in the chest. Specifically, there is no evidence of a pulmonary embolism or aortic dissection. Dictated by: Dictated on workstation # [id number]
[2020-10-14 18:01] LABS: BACTERIA,URINE NEGATIVE /HPF
[2020-10-14 18:03] LABS: AMPHETAMINE SCREEN, URINE POSITIVE (NEGATIVE); BARBITURATE SCREEN URINE NEGATIVE (NEGATIVE); BENZODIAZEPINES SCREEN URINE NEGATIVE (NEGATIVE); CANNABINOID SCREEN, URINE NEGATIVE (NEGATIVE); COCAINE SCREEN URINE NEGATIVE (NEGATIVE); METHADONE STAT NEGATIVE (NEGATIVE); METHAMPHETAMINE SCREEN URINE S POSITIVE (NEGATIVE); OPIATE SCREEN URINE NEGATIVE (NEGATIVE); OXYCODONE STAT NEGATIVE (NEGATIVE); PROPOXYPHENE STAT NEGATIVE (NEGATIVE); TRICYCLIC ANTIDEPRESSANTS SCRE NEGATIVE (NEGATIVE)
[2020-10-14 18:36] VITALS: BP 123/70
== END 2020-10-14 18:36 | disposition home or self-care (01) ==
LOC: EDUNIT# 16:00 → ER 16:01
DX: F15.10 Other stimulant abuse, uncomplicated (principal); J45.909 Unspecified asthma, uncomplicated
CPT/HCPCS: 36415; 71045; 71275; 80053; 80306; 81000; 83735; 83874; 83880; 84484; 84703; 85025; 85379; 85610; 85730; 93005

== ENCOUNTER 2021-02-05 18:00 | Emergency (ER) | payer OTHER ==
[~2021-02-05] VITALS: Ht 162.5 cm; Wt 68.0 kg
--- NOTE | 2021-02-05 18:22 | ED Abdominal Pain ---
General Chief Complaint: Abdominal/GI Problems Stated Complaint: ABD PAIN Source of Information: Patient Exam Limitations: No Limitations (NISA CHISHOLM APRN) History of Present Illness Date Seen by Provider: Feb 05, 2021 Time Seen by Provider: 18:21 Initial Comments To ER with left lower quadrant abdominal pain for about a week getting intolerable today. She feels a bulge in the left lower abdomen. She does not think she is . No nausea no vomiting. No fever no chills. She is passing gas and having normal bowel movements. No dysuria. She arrives and shackles and handcuffs accompanied by [facility] staff. Timing/Duration: 1 Week Severity/Quality: Moderate, Severe Location: LLQ Radiation: No Radiation Activities at Onset: None Associated Symptoms: Denies Symptoms (NISA CHISHOLM APRN) Allergies and Home Medications Allergies Coded Allergies: chlorpheniramine (Verified Allergy, Mild, 12/20/07) codeine (Unverified Allergy, Mild, RASH, 08/15/08) guaifenesin (Unverified Allergy, Mild, RASH, 08/15/08) phenylephrine (Verified Allergy, Mild, 12/20/07) phenylpropanolamine (Verified Allergy, Mild, 12/20/07) phenyltoloxamine (Verified Allergy, Mild, 12/20/07) cephalexin (Unverified Adverse Reaction, Intermediate, IRRITABLITY, TENSE, 05/08/05) Uncoded Allergies: NALDICON COUGH SYRUP (Adverse Reaction, Intermediate, IRRITABILITY, TENSE, 05/08/05) Patient Home Medication List Home Medication List Reviewed: Yes (NISA CHISHOLM APRN) Nitrofurantoin Monohyd/M-Cryst (Macrobid 100 mg Capsule) 100 Mg Capsule, 1 TAB PO BID Prescribed by: CHRISSY SALCEDO on 06/24/20 1002 Sulfamethoxazole/Trimethoprim (Bactrim Ds Tablet) 1 Each Tablet, 1 EACH PO BID Prescribed by: NISA CHISHOLM on 02/05/211948 Review of Systems Review of Systems Constitutional: see HPI EENTM: No Symptoms Reported Respiratory: No Symptoms Reported Cardiovascular: No Symptoms Reported Gastrointestinal: See HPI, Abdominal Pain Genitourinary: No Symptoms Reported Musculoskeletal: no symptoms reported Skin: no symptoms reported Psychiatric/Neurological: No Symptoms Reported Endocrine: No Symptoms Reported Hematologic/Lymphatic: No Symptoms Reported (NISA CHISHOLM APRN) Past Sbuyaqt-Bghihd-Iorfpj Hx Immunizations Up To Date Tetanus Booster (TDap): Unknown (NISA CHISHOLM APRN) Seasonal Allergies Seasonal Allergies: No (NISA CHISHOLM APRN) Past Medical History Surgeries: Yes (BMT'S) Appendectomy, Section, Ear Surgery, Tubal Ligation Respiratory: Yes Asthma Cardiac: No Neurological: Yes Headaches /Migraines Reproductive Disorders: Yes (MULTIPLE MISCARRIAGES; SEVERE PRE-ECLAMPSIA) Female 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 Sexually Transmitted Disease: No HIV/AIDS: No Genitourinary: Yes UTI-Chronic Gastrointestinal: Yes Ulcer Musculoskeletal: Yes Chronic Back Pain Endocrine: No HEENT: No Cancer: No Psychosocial: Yes Anxiety, Suicide Attempts, Depression Integumentary: No Blood Disorders: No Adverse Reaction/Blood Tranf: No (NISA CHISHOLM APRN) Family Medical History Cancer, Diabetes (NISA CHISHOLM APRN) Physical Exam Vital Signs Vital Signs - First Documented 02/05/21 18:26 Temp 37.0 Pulse 77 Resp 18 B/P (MAP) 155/93 (113) Pulse Ox 100 O2 Delivery Room Air (CAS,MICHELLE K DO) Vital Signs Capillary Refill : (NISA CHISHOLM APRN) Height/Weight/BMI Height: 5'4.00" Weight: 160lbs. 9.0oz. [id number]; 27.00 BMI Method:Stated General Appearance: WD/WN, no apparent distress HEENT: PERRL/EOMI, normal ENT inspection Respiratory: no respiratory distress, no accessory muscle use Cardiovascular: regular rate, rhythm, no murmur Gastrointestinal: normal bowel sounds, soft, tenderness Extremities: normal range of motion, non-tender Neurologic/Psychiatric: alert, normal mood/affect, oriented x 3 Skin: normal color, warm/dry (NISA CHISHOLM APRN) Progress/Results/Core Measures Results/Orders Lab Results Laboratory Tests Test 02/05/21 18:26 02/05/21 18:36 Range/Units White Blood Count 15.7 H 4.3-11.0 10^3/uL Red Blood Count 4.93 3.80-5.11 10^6/uL Hemoglobin 14.7 11.5-16.0 g/dL Hematocrit 45 35-52 % Mean Corpuscular Volume 92 80-99 fL Mean Corpuscular Hemoglobin 30 25-34 pg Mean Corpuscular Hemoglobin Concent 33 32-36 g/dL Red Cell Distribution Width 14.0 10.0-14.5 % Platelet Count 467 H 130-400 10^3/uL Mean Platelet Volume 9.0 9.0-12.2 fL Immature Granulocyte % (Auto) 0 % Neutrophils (%) (Auto) 77 H 42-75 % Lymphocytes (%) (Auto) 16 12-44 % Monocytes (%) (Auto) 5 0-12 % Eosinophils (%) (Auto) 1 0-10 % Basophils (%) (Auto) 1 0-10 % Neutrophils # (Auto) 12.0 H 1.8-7.8 10^3/uL Lymphocytes # (Auto) 2.5 1.0-4.0 10^3/uL Monocytes # (Auto) 0.8 0.0-1.0 10^3/uL Eosinophils # (Auto) 0.1 0.0-0.3 10^3/uL Basophils # (Auto) 0.1 0.0-0.1 10^3/uL Immature Granulocyte # (Auto) 0.1 0.0-0.1 10^3/uL Neutrophils % (Manual) 78 % Lymphocytes % (Manual) 15 % Monocytes % (Manual) 6 % Eosinophils % (Manual) 1 % Blood Morphology Comment NORMAL Sodium Level 142 135-145 MMOL/L Potassium Level 4.2 3.6-5.0 MMOL/L Chloride Level 107 98-107 MMOL/L Carbon Dioxide Level 25 21-32 MMOL/L Anion Gap 10 5-14 MMOL/L Blood Urea Nitrogen 12 7-18 MG/DL Creatinine 0.78 0.60-1.30 MG/DL Estimat Glomerular Filtration Rate 103 BUN/Creatinine Ratio 15 Glucose Level 98 70-105 MG/DL Calcium Level 9.3 8.5-10.1 MG/DL Corrected Calcium 9.4 8.5-10.1 MG/DL Total Bilirubin 0.3 0.1-1.0 MG/DL Aspartate Amino Transf (AST/SGOT) 18 5-34 U/L Alanine Aminotransferase (ALT/SGPT) 21 0-55 U/L Alkaline Phosphatase 62 40-136 U/L Total Protein 7.3 6.4-8.2 GM/DL Albumin 3.9 3.2-4.5 GM/DL Serum Test, Qualitative NEGATIVE NEGATIVE Urine Color YELLOW Urine Clarity CLEAR Urine pH 7.0 5-9 Urine Specific [place] 1.020 1.016-1.022 Urine Protein NEGATIVE NEGATIVE Urine Glucose (UA) NEGATIVE NEGATIVE Urine Ketones NEGATIVE NEGATIVE Urine Nitrite NEGATIVE NEGATIVE Urine Bilirubin NEGATIVE NEGATIVE Urine Urobilinogen 0.2 < = 1.0 MG/DL Urine Leukocyte Esterase 1+ H NEGATIVE Urine RBC (Auto) NEGATIVE NEGATIVE Urine RBC NONE /HPF Urine WBC 10-25 H /HPF Urine Crystals NONE /LPF Urine Bacteria FEW H /HPF Urine Casts NONE /LPF Urine Mucus NEGATIVE /LPF Urine Culture Indicated YES Urine Opiates Screen NEGATIVE NEGATIVE Urine Oxycodone Screen NEGATIVE NEGATIVE Urine Methadone Screen NEGATIVE NEGATIVE Urine Propoxyphene Screen NEGATIVE NEGATIVE Urine Barbiturates Screen NEGATIVE NEGATIVE Ur Tricyclic Antidepressants Screen NEGATIVE NEGATIVE Urine Phencyclidine Screen NEGATIVE NEGATIVE Urine Amphetamines Screen NEGATIVE NEGATIVE Urine Methamphetamines Screen NEGATIVE NEGATIVE Urine Benzodiazepines Screen NEGATIVE NEGATIVE Urine Cocaine Screen NEGATIVE NEGATIVE Urine Cannabinoids Screen NEGATIVE NEGATIVE (MICHELLE CARDOZO DO) Medications Given in ED Current Medications Medications Dose Ordered Sig/James Route Start Time Stop Time Status Last Admin Dose Admin Acetaminophen 1,000 mg ONCE ONCE PO 02/05/21 20:00 02/05/21 20:01 DC 02/05/21 20:00 1,000 MG Iohexol 100 ml ONCE ONCE IV 02/05/21 19:00 02/05/21 19:01 AL 02/05/21 19:19 85 ML Ketorolac Tromethamine 15 mg ONCE ONCE IVP 02/05/21 18:30 02/05/21 18:31 DC 02/05/21 18:29 15 MG Magnesium Citrate 300 ml ONCE ONCE PO 02/05/21 20:00 02/05/21 20:01 AL 02/05/21 20:06 300 ML Sodium Chloride 100 ml ONCE ONCE IV 02/05/21 19:00 02/05/21 19:01 DC 02/05/21 19:19 80 ML Tramadol HCl 50 mg ONCE ONCE PO 02/05/21 20:00 02/05/21 20:01 AL 02/05/21 20:00 50 MG Trimethoprim/ Sulfamethoxazole 1 ea ONCE ONCE PO 02/05/21 19:30 02/05/21 19:31 AL 02/05/21 19:45 1 EA (MICHELLE CARDOZO DO) Vital Signs/I&O 02/05/21 02/05/21 18:26 20:00 Temp 37.0 37.0 Pulse 77 77 Resp 18 18 B/P (MAP) 155/93 (113) 145/83 Pulse Ox 100 100 O2 Delivery Room Air Room Air (MICHELLE CARDOZO DO) Departure Communication (Admissions) NAME: [facility] REC#: [id number] PT STATUS: REG ER : 1985 PHYSICIAN: NISA CHISHOLM APRN ADMIT DATE: 02/05/21/ER Draft Date of Exam:02/05/21 CT ABDOMEN/PELVIS W PROCEDURE: CT abdomen and pelvis with contrast. TECHNIQUE: Multiple contiguous axial images were obtained through the abdomen and pelvis after administration of intravenous contrast. Auto Exposure Controls were utilized during the CT exam to meet ALARA standards for radiation dose reduction. All CT scans use one or more of the following dose optimizing techniques: automated exposure control, MA and/or KvP adjustment based on patient size and exam type or iterative reconstruction. INDICATION: Left lower quadrant pain, palpable mass. The previous CT abdomen/pelvis exam of 04/13/2014 failed to show any sign of an acute abnormality of the abdomen or pelvis. On this exam there is some fluid in the small bowel. This appearance is nonspecific however. There is no sign of a bowel obstruction. There does appear to be a fair amount of fecal material throughout the colon. The appendix was not well visualized but there are no indirect signs of acute appendicitis. There is no pelvic mass or free fluid collection noted. The uterus and urinary bladder are grossly unremarkable. By history patient has a palpable mass in the lower abdomen distal left midline. A marker was placed of the area of concern. In this region there is a small 1.3 x 1.8 cm soft tissue density. This of uncertain etiology but could be related to a small hematoma. If further study is desired, ultrasound would be recommended. There is no acute abnormality of the upper abdomen. The lung bases are clear. The bone windows are unremarkable for a fracture or for destructive lesion. IMPRESSION: 1. The small soft tissue density along the anterior abdominal wall on the left in the region of the patient's palpable abnormality is of uncertain etiology. This does not have an aggressive appearance. If further study is desired, ultrasound would be recommended. 2. There is no acute abnormality of the abdomen or pelvis. 3. There is a fair amount of fecal material throughout the colon. Dictated on workstation # [id number] Dict: 02/05/211929 Trans: 02/05/211941 [facility] [id number] Interpreted by: JERICHO SNOWDEN MD Electronically signed by: (NISA CHISHOLM APRN) Impression Primary Impression: Abdominal wall hematoma Additional Impressions: UTI (urinary tract infection) Constipation Disposition: HOME, SELF-CARE Condition: Stable Departure-Patient Inst. Decision time for Depature: 19:45 (NISA CHISHOLM APRN) Referrals: YAJAIRA ARNDT DO (PCP/Family) Primary Care Physician Patient Instructions: HEMATOMA, Urinary Tract Infection, Adult ED Add. Discharge Instructions: 1. MiraLAX 1 capful twice a day 2. Follow-up with your doctor next week 3. Tylenol and ibuprofen for pain All discharge instructions reviewed with patient and/or family. Voiced under standing. Scripts Sulfamethoxazole/Trimethoprim (Bactrim Ds Tablet) 1 Each Tablet 1 EACH PO BID, #10 TAB Prov: NISA CHISHOLM APRN 02/05/21 ATTENDING PHYSICIAN NOTE: I WAS PHYSICALLY PRESENT ER PHYSICIAN WHEN THIS PATIENT WAS IN ER, BUT I WAS NOT INVOLVED IN ANY DECISION MAKING OR ANY CARE OF THIS PATIENT. (MICHELLE CARDOZO DO) NISA CHISHOLM APRN Feb 05, 2021 18:22 MICHELLE CARDOZO DO Feb 06, 2021 04:38
[2021-02-05] MEDS ORDERED: KETOROLAC 30 MG/ML VIAL IVP ONE (18:30)
[2021-02-05 18:32] LABS: BASOPHILS # (AUTO) 0.1 10^3/uL (0.0-0.1); BASOPHILS % (AUTO) 1 % (0-10); EOSINOPHILS # (AUTO) 0.1 10^3/uL (0.0-0.3); EOSINOPHILS % (AUTO) 1 % (0-10); HEMATOCRIT 45 % (35-52); HEMOGLOBIN 14.7 g/dL (11.5-16.0); LYMPHOCYTES # (AUTO) 2.5 10^3/uL (1.0-4.0); LYMPHOCYTES % (AUTO) 16 % (12-44); MEAN CORPUSCULAR HEMOGLOBIN 30 pg (25-34); MEAN CORPUSCULAR HGB CONC 33 g/dL (32-36); MEAN CORPUSCULAR VOLUME 92 fL (80-99); MONOCYTES # (AUTO) 0.8 10^3/uL (0.0-1.0); MONOCYTES % (AUTO) 5 % (0-12); NEUTROPHILS % (AUTO) 77 % (42-75); PLATELET COUNT 467 10^3/uL (130-400); WHITE BLOOD COUNT 15.7 10^3/uL (4.3-11.0)
[2021-02-05 18:42] LABS: ALBUMIN 3.9 GM/DL (3.2-4.5); POTASSIUM 4.2 MMOL/L (3.6-5.0)
[2021-02-05 18:43] LABS: CALCIUM 9.3 MG/DL (8.5-10.1)
[2021-02-05 18:44] LABS: TOTAL PROTEIN 7.3 GM/DL (6.4-8.2)
[2021-02-05 18:46] LABS: BILIRUBIN,URINE NEGATIVE (NEGATIVE); CLARITY,URINE CLEAR; COLOR,URINE YELLOW; GLUCOSE, URINE (UA) NEGATIVE (NEGATIVE); KETONES,URINE NEGATIVE (NEGATIVE); LEUKOCYTE ESTERASE ,URINE 1+ (NEGATIVE); NITRITE,URINE NEGATIVE (NEGATIVE); PROTEIN,URINE NEGATIVE (NEGATIVE)
[2021-02-05 18:46] LABS: BILIRUBIN,TOTAL 0.3 MG/DL (0.1-1.0)
[2021-02-05 18:48] LABS: CREATININE SERUM 0.78 MG/DL (0.60-1.30)
[2021-02-05 18:58] LABS: BACTERIA,URINE FEW /HPF
[2021-02-05 18:59] LABS: AMPHETAMINE SCREEN, URINE NEGATIVE (NEGATIVE); BARBITURATE SCREEN URINE NEGATIVE (NEGATIVE); BENZODIAZEPINES SCREEN URINE NEGATIVE (NEGATIVE); CANNABINOID SCREEN, URINE NEGATIVE (NEGATIVE); COCAINE SCREEN URINE NEGATIVE (NEGATIVE); METHADONE STAT NEGATIVE (NEGATIVE); METHAMPHETAMINE SCREEN URINE S NEGATIVE (NEGATIVE); OPIATE SCREEN URINE NEGATIVE (NEGATIVE); OXYCODONE STAT NEGATIVE (NEGATIVE); PROPOXYPHENE STAT NEGATIVE (NEGATIVE); TRICYCLIC ANTIDEPRESSANTS SCRE NEGATIVE (NEGATIVE)
[2021-02-05] MEDS ORDERED: HOLD METFORMIN - RECEIVED CONTRAST 20 ML VIAL IV SCH (19:00)
[2021-02-05] MEDS ORDERED: NS 100 ML (IVPB) BAG IV ONE (19:00)
[2021-02-05] MEDS ORDERED: IOHEXOL 350 MG/ML 100 ML (OMNIPAQUE 350) VIAL IV ONE (19:00)
[2021-02-05 19:23] LABS: EOSINOPHILS % (MANUAL) 1 %; LYMPHOCYTES % (MANUAL) 15 %; MONOCYTES % (MANUAL) 6 %; NEUTROPHILS % (MANUAL) 78 %; RBC MORPH NORMAL
[2021-02-05] MEDS ORDERED: TRIM/SULFAMETH 160/800 (SEPTRA DS) TAB PO ONE (19:30)
--- NOTE | 2021-02-05 19:42 | Diagnostic Imaging Report ---
PROCEDURE: CT abdomen and pelvis with contrast. TECHNIQUE: Multiple contiguous axial images were obtained through the abdomen and pelvis after administration of intravenous contrast. Auto Exposure Controls were utilized during the CT exam to meet ALARA standards for radiation dose reduction. All CT scans use one or more of the following dose optimizing techniques: automated exposure control, MA and/or KvP adjustment based on patient size and exam type or iterative reconstruction. INDICATION: Left lower quadrant pain, palpable mass. The previous CT abdomen/pelvis exam of 04/13/2014 failed to show any sign of an acute abnormality of the abdomen or pelvis. On this exam there is some fluid in the small bowel. This appearance is nonspecific however. There is no sign of a bowel obstruction. There does appear to be a fair amount of fecal material throughout the colon. The appendix was not well visualized but there are no indirect signs of acute appendicitis. There is no pelvic mass or free fluid collection noted. The uterus and urinary bladder are grossly unremarkable. By history patient has a palpable mass in the lower abdomen distal left midline. A marker was placed of the area of concern. In this region there is a small 1.3 x 1.8 cm soft tissue density. This of uncertain etiology but could be related to a small hematoma. If further study is desired, ultrasound would be recommended. There is no acute abnormality of the upper abdomen. The lung bases are clear. The bone windows are unremarkable for a fracture or for destructive lesion. IMPRESSION: 1. The small soft tissue density along the anterior abdominal wall on the left in the region of the patient's palpable abnormality is of uncertain etiology. This does not have an aggressive appearance. If further study is desired, then ultrasound would be recommended. 2. There is no acute abnormality of the abdomen or pelvis. 3. There is a fair amount of fecal material throughout the colon. Dictated by: Dictated on workstation # [id number]
[2021-02-05] MEDS ORDERED: SULF1TAB38 PO (19:49)
[2021-02-05 20:00] VITALS: BP 145/83
[2021-02-05] MEDS ORDERED: ACETAMINOPHEN 500 MG TAB (TYLENOL) PO ONE (20:00)
[2021-02-05] MEDS ORDERED: polyethylene glycoL POWDER 17 GM (MIRALAX) PACK PO ONE (20:00)
[2021-02-05] MEDS ORDERED: MAGNESIUM CITRATE 300 ML BTL PO ONE (20:00)
== END 2021-02-05 20:05 | disposition home or self-care (01) ==
LOC: EDUNIT# 18:00 → ER 18:02
DX: S30.1XXA Contusion of abdominal wall, initial encounter (principal); N39.0 Urinary tract infection, site not specified; K59.00 Constipation, unspecified; J45.909 Unspecified asthma, uncomplicated; X58.XXXA Exposure to other specified factors, initial encounter
CPT/HCPCS: 36415; 74177; 80053; 80306; 81000; 84703; 85007; 85027; 87088

== ENCOUNTER 2021-07-21 02:23 | Emergency (ER) | payer MEDICAID, MEDICARE ==
[~2021-07-21] VITALS: Ht 162.5 cm; Wt 63.4 kg
[2021-07-21] MEDS ORDERED: IBUP-1773 PO (02:44)
[2021-07-21] MEDS ORDERED: CLIN-144 PO (02:44)
--- NOTE | 2021-07-21 02:44 | ED EENT ---
History of Present Illness General Chief Complaint: Abdominal/GI Problems Stated Complaint: TOOTH PAIN Nursing Triage Note: PT ARRIVAL TO ER WITH DENTAL PAIN. PAIN TO TOP RIGHT. HX OF BROKEN TEETH. TYLENOL 2 HOURS AGO. PAIN AT 8/10. PAIN STARTED YESTERDAY Source: patient Exam Limitations: no limitations History of Present Illness Date Seen by Provider: Jul 21, 2021 Time Seen by Provider: 02:28 Initial Comments 36-year-old female with no pertinent past medical history coming in due to dental pain. Started yesterday, throbbing in her left upper part of her teeth. No swelling that she is noted, no problems swallowing, no problems opening her mouth, no throat pain, difficulty speaking, fever, chest pain, shortness of breath, cough, nausea, vomiting, or any other concerns. She says her dentist is at [facility]. Allergies and Home Medications Allergies Coded Allergies: chlorpheniramine (Verified Allergy, Mild, 12/20/07) codeine (Unverified Allergy, Mild, RASH, 08/15/08) guaifenesin (Unverified Allergy, Mild, RASH, 08/15/08) phenylephrine (Verified Allergy, Mild, 12/20/07) phenylpropanolamine (Verified Allergy, Mild, 12/20/07) phenyltoloxamine (Verified Allergy, Mild, 12/20/07) cephalexin (Unverified Adverse Reaction, Intermediate, IRRITABLITY, TENSE, 05/08/05) Uncoded Allergies: NALDICON COUGH SYRUP (Adverse Reaction, Intermediate, IRRITABILITY, TENSE, 05/08/05) Patient Home Medication List Home Medication List Reviewed: Yes Nitrofurantoin Monohyd/M-Cryst (Macrobid 100 mg Capsule) 100 Mg Capsule, 1 TAB PO BID Prescribed by: CHRISSY SALCEDO on 06/24/20 1002 Sulfamethoxazole/Trimethoprim (Bactrim Ds Tablet) 1 Each Tablet, 1 EACH PO BID Prescribed by: NISA CHISHOLM on 02/05/211948 Review of Systems Review of Systems Constitutional: No fever Eyes: Denies Blurred Vision Ears: No Symptoms Reported Nose: no symptoms reported Mouth: other (Dental pain) Throat: no symptoms reported Respiratory: no symptoms reported Cardiovascular: no symptoms reported Gastrointestinal: no symptoms reported Musculoskeletal: no symptoms reported Skin: no symptoms reported Neurological: No Symptoms Reported Hematologic/Lymphatic: No Symptoms Reported Immunological/Allergic: no symptoms reported All Other Systems Reviewed Negative Unless Noted: Yes Past Vmovngb-Lvebat-Xnvwrt Hx Patient Social History Tobacco Use?: No Use of E-Cig and/or Vaping dev: No Substance use?: No Alcohol Use?: No Pt feels they are or have been: No Immunizations Up To Date Tetanus Booster (TDap): Unknown Influenza Vaccine Up-to-Date: No; Not Current Seasonal Allergies Seasonal Allergies: No Past Medical History Surgeries: Yes (BMT'S) Appendectomy, Section, Ear Surgery, Tubal Ligation Respiratory: Yes Asthma Cardiac: No Neurological: Yes Headaches /Migraines Reproductive Disorders: Yes (MULTIPLE MISCARRIAGES; SEVERE PRE-ECLAMPSIA) Female 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 9.0oz. [id number]; 24.00 BMI Method:Stated General Appearance: WD/WN, no apparent distress Eyes: bilateral eye normal inspection Ears: bilateral ear auricle normal Nose: normal inspection Mouth/Throat: pharynx normal, dental tenderness; No excessive drooling, No mandibular swelling, No maxillary swelling, No pharynx tenderness, No tonsillar exudate, No trismus, No uvula swelling, No voice changes; other (No abscess palpated and no swelling seen) Neck: non-tender, full range of motion, supple, normal inspection Cardiovascular: regular rate, rhythm, no edema, no murmur Respiratory: chest non-tender, lungs clear, normal breath sounds, no respiratory distress, no accessory muscle use Gastrointestinal: normal bowel sounds, non tender, soft; No distended, No guarding, No rebound Neurologic/Psychiatric: no motor/sensory deficits, alert, normal mood/affect Skin: normal color, warm/dry Progress/Results/Core Measures Results/Orders My Orders Orders - FLOYD PATTERSON MD Clindamycin Capsule (Cleocin Capsule) (07/21/21 02:45) Ibuprofen Tablet (Motrin Tablet) (07/21/21 02:45) Vital Signs/I&O 07/21/21 02:35 Temp 36.7 Pulse 87 Resp 20 B/P (MAP) 112/82 (92) Pulse Ox 98 O2 Delivery Room Air Blood Pressure Mean: 92 Progress Progress Note : Progress Note Patient presented for dental pain. She does have multiple dental caries and tenderness to palpation of the teeth. No abscess felt. No red flags that would be concerning for her airway. Given clindamycin given her Keflex allergy as well as ibuprofen. I believe she is stable for discharge with outpatient follow-up. She was sent home with strict return precautions Departure Impression Primary Impression: Pain, dental Disposition: HOME, SELF-CARE Condition: Stable Departure-Patient Inst. Decision time for Depature: 02:42 Referrals: YAJAIRA ARNDT DO (PCP/Family) Primary Care Physician Patient Instructions: Dental Pain (DC) Add. Discharge Instructions: Please call your dentist in the morning to see what they can do. We will start you on antibiotics and send them to [facility] pharmacy on [facility], but this will not fix the problem long-term. Have also sent a prescription ibuprofen. You can take Tylenol with this. Scripts Ibuprofen (Ibuprofen) 600 Mg Tablet 600 MG PO Q6H PRN for PAIN-MILD for 5 Days, #20 TAB Prov: FLOYD PATTERSON MD 07/21/21 Clindamycin HCl (Clindamycin HCl) 300 Mg Capsule 300 MG PO QID for 7 Days, #28 CAP Prov: FLOYD PATTERSON MD 07/21/21 Work/School Note: Work Release Form Date Seen in the Emergency Department: Jul 21, 2021 Return to Work: Jul 22, 2021 Restrictions: No Restrictions FLOYD PATTERSON MD Jul 21, 2021 02:44
[2021-07-21] MEDS ORDERED: CLINDAMYCIN 150 MG (CLEOCIN) CAP PO ONE ×2 (02:45→02:48)
[2021-07-21] MEDS ORDERED: IBUPROFEN 600 MG (MOTRIN) TAB PO ONE (02:45)
[2021-07-21 02:53] VITALS: BP 112/82
== END 2021-07-21 02:51 | disposition home or self-care (01) ==
LOC: EDUNIT# 02:23 → ER 02:26
DX: K08.89 Other specified disorders of teeth and supporting structures (principal)
CPT/HCPCS: 99283

== ENCOUNTER 2021-09-10 08:46 | Emergency (ER) | payer MEDICARE ==
[~2021-09-10] VITALS: Ht 162.5 cm; Wt 81.6 kg
[~2021-09-10 08:46] MED LIST changes: +CLIN-144 PO; +IBUP-1773 PO
--- NOTE | 2021-09-10 09:42 | ED Psychosocial ---
General Chief Complaint: Suicidal Ideation Risk Stated Complaint: PSYCH EVAL-SUICIDAL IDEATIONS Nursing Triage Note: PT AMB TO RM 8 WITH CO SUCIDIAL THOUGHTS. PT REPORTS SHE DOES HAVE A PLAN AND REPORTS VOICES ARE TELLING HER TO SCRATCH AND HANG HERSELF. PT REPORTS WAS ON [facility] "A FEW WEEKS AGO". PT REPORTS IS HOMELESS AND CHILDREN ARE IN FOSTER CARE. PT PUT IN SAFE ROOM, SUCICID PERCAUTIONS IN PLACE. PT TEARFUL AND ANXIOUS Source: patient Exam Limitations: no limitations History of Present Illness Date Seen by Provider: Sep 10, 2021 Time Seen by Provider: 09:09 Initial Comments This 36-year-old woman presents to the emergency room with suicidal ideation. She has a plan to strangle her self with a cord around her neck or to overdose on medications. She reports having this plan within the last month. She does believe she would be a danger to herself if she left the emergency room today and could accomplish this plan. She is quite tearful and states she does not want to live anymore. She recently was incarcerated and then lost her home to eviction. She has been roaming the streets for about 2 weeks. She has active substance abuse and last used methamphetamines by smoking 2 days ago. She denies any physical symptoms at this time. She has been compliant with her medications and states that she will run out of her medications today or tomorrow if they are not refilled. Despite using her medications, she is hearing voices encouraging her to harm herself. She reports an inpatient psychiatric stay at the [place] [facility] months ago. Allergies and Home Medications Allergies Coded Allergies: chlorpheniramine (Verified Allergy, Mild, 12/20/07) codeine (Unverified Allergy, Mild, RASH, 08/15/08) guaifenesin (Unverified Allergy, Mild, RASH, 08/15/08) phenylephrine (Verified Allergy, Mild, 12/20/07) phenylpropanolamine (Verified Allergy, Mild, 12/20/07) phenyltoloxamine (Verified Allergy, Mild, 12/20/07) cephalexin (Unverified Adverse Reaction, Intermediate, IRRITABLITY, TENSE, 05/08/05) Uncoded Allergies: NALDICON COUGH SYRUP (Adverse Reaction, Intermediate, IRRITABILITY, TENSE, 05/08/05) Patient Home Medication List Home Medication List Reviewed: Yes Clindamycin HCl (Clindamycin HCl) 300 Mg Capsule, 300 MG PO QID Prescribed by: FLOYD PATTERSON on 07/21/21 0244 Ibuprofen (Ibuprofen) 600 Mg Tablet, 600 MG PO Q6H PRN for PAIN-MILD Prescribed by: FLOYD PATTERSON on 07/21/21 0244 Nitrofurantoin Monohyd/M-Cryst (Macrobid 100 mg Capsule) 100 Mg Capsule, 1 TAB PO BID Prescribed by: CHRISSY SALCEDO on 06/24/20 1002 Sulfamethoxazole/Trimethoprim (Bactrim Ds Tablet) 1 Each Tablet, 1 EACH PO BID Prescribed by: NISA CHISHOLM on 02/05/211948 Review of Systems Constitutional: no symptoms reported EENTM: no symptoms reported Respiratory: no symptoms reported Cardiovascular: no symptoms reported Gastrointestinal: no symptoms reported Genitourinary: no symptoms reported : No Musculoskeletal: no symptoms reported Skin: no symptoms reported Psychiatric/Neurological: See HPI Past Ziquica-Sqpaxs-Pvostw Hx Patient Social History Tobacco Use?: No Substance use?: Yes Substance type: Methamphetamine Substance frequency: Several times a month Alcohol Use?: No Pt feels they are or have been: No Immunizations Up To Date Tetanus Booster (TDap): Unknown Seasonal Allergies Seasonal Allergies: No Past Medical History Surgery/Hospitalization HX: APPY, TUBAL, , [facility]ENT STAY AT [facility] Surgeries: Yes (BMT'S) Appendectomy, Section, Ear Surgery, Tubal Ligation Respiratory: Yes Asthma Cardiac: No Neurological: Yes Headaches /Migraines Last Menstrual Period: Aug 11, 2021 Reproductive Disorders: Yes (MULTIPLE MISCARRIAGES; SEVERE PRE-ECLAMPSIA) Female 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 9.0oz. 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, no motor/sensory deficits, alert, oriented x 3, other (Depressed, tearful) Appearance/Memory: appropriate insight Behavior/Eye Contact: cooperative, good eye contact, normal speech Thoughts/Hallucinations: auditory hallucinations Skin: normal color, warm/dry Suicide Risk Suicide Risk Suicide Risk Level / RN Screen: Moderate Low Suicide Risk Level []Suicidal Ideation WITHOUT method, intent, plan or behavior more than a month ago []]Modifiable risk factors and strong protective factors []No reported history of suicidal ideation or behavior []Patient reports/exhibits symptoms consistent with psychosis []Patient reports a plan that would be unrealistic/impossible to complete and intent []Suicide attempt prior to arrival (Indicates at LEAST Low Suicide Risk, consider other risk factors) Moderate Suicide Risk Level: []Suicidal ideation with method, WITHOUT plan, intent or behavior in the past month []Multiple risk factors and few protective factors []Patient reports intent to follow through on plan to end life if allowed to leave hospital, and has attempted to elope from the hospital High Suicide Risk Level: [y] Suicidal ideation with intent or intent with a plan in the past month [n] Patient has harmed self or attempted suicide while in the hospital [y] Patient has hx of or current Command Auditory hallucinations to harm self or others that they follow without hesitation [n] Patient refuses to disclose plan, and indicates intent to complete [y] Patient reports plan that is possible to accomplish and/or has means to complete Risk factors supporting recommendation: [] Non-compliance with treatment (acute or chronic) [] Patient has access to or owns firearms and/or stockpiled medications [] Hx Impulsive behavior [y] Pending incarceration or homelessness [] Sexual abuse [] Family history and/or exposure to suicide [] Adverse childhood experiences [y] Exposure to violence or negative socio-political cultural, and economic forces [y] Current or hx of substance use/abuse [] Chronic physical pain or other acute medical problem (AIDS, COPD, Cancer, etc) [] Perceived burden on family or others [] Patient has attempted to elope [] Unable to answer and/or unable to identify [] Refuses to agree to a safety plan Protective Factors supporting recommendation: [] Identifies reasons for living [] Future plans/goals [] Engaged in work or School [] Good family support network [] Good social support network [] Responsibility to family [] Belief that suicide is immoral, against their restoration beliefs [] High spirituality and involvement in rastafari community [] Fear of or dying due to pain and suffering [] Established outpt psychiatric services [] Unable to answer and/or unable to identify Risk Assessment Tool Score: High Progress/Results/Core Measures Results/Orders Lab Results Laboratory Tests Test 09/10/21 09:13 09/10/21 09:35 09/10/21 10:55 Range/Units Influenza Type A (RT-PCR) Not Detected Not Detecte Influenza Type B (RT-PCR) Not Detected Not Detecte SARS-CoV-2 RNA (RT-PCR) Not Detected Not Detecte White Blood Count 8.9 4.3-11.0 10^3/uL Red Blood Count 4.12 3.80-5.11 10^6/uL Hemoglobin 12.3 11.5-16.0 g/dL Hematocrit 36 35-52 % Mean Corpuscular Volume 88 80-99 fL Mean Corpuscular Hemoglobin 30 25-34 pg Mean Corpuscular Hemoglobin Concent 34 32-36 g/dL Red Cell Distribution Width 13.8 10.0-14.5 % Platelet Count 423 H 130-400 10^3/uL Mean Platelet Volume 9.0 9.0-12.2 fL Immature Granulocyte % (Auto) 0 % Neutrophils (%) (Auto) 63 42-75 % Lymphocytes (%) (Auto) 26 12-44 % Monocytes (%) (Auto) 9 0-12 % Eosinophils (%) (Auto) 2 0-10 % Basophils (%) (Auto) 1 0-10 % Neutrophils # (Auto) 5.6 1.8-7.8 10^3/uL Lymphocytes # (Auto) 2.3 1.0-4.0 10^3/uL Monocytes # (Auto) 0.8 0.0-1.0 10^3/uL Eosinophils # (Auto) 0.2 0.0-0.3 10^3/uL Basophils # (Auto) 0.1 0.0-0.1 10^3/uL Immature Granulocyte # (Auto) 0.0 0.0-0.1 10^3/uL Sodium Level 142 135-145 MMOL/L Potassium Level 3.1 L 3.6-5.0 MMOL/L Chloride Level 105 98-107 MMOL/L Carbon Dioxide Level 22 21-32 MMOL/L Anion Gap 15 H 5-14 MMOL/L Blood Urea Nitrogen 13 7-18 MG/DL Creatinine 0.77 0.60-1.30 MG/DL Estimat Glomerular Filtration Rate 104 BUN/Creatinine Ratio 17 Glucose Level 112 H 70-105 MG/DL Calcium Level 9.0 8.5-10.1 MG/DL Corrected Calcium 9.2 8.5-10.1 MG/DL Total Bilirubin 0.2 0.1-1.0 MG/DL Aspartate Amino Transf (AST/SGOT) 17 5-34 U/L Alanine Aminotransferase (ALT/SGPT) 12 0-55 U/L Alkaline Phosphatase 69 40-136 U/L Total Protein 6.9 6.4-8.2 GM/DL Albumin 3.7 3.2-4.5 GM/DL Serum Test, Qualitative NEGATIVE NEGATIVE Salicylates Level < 5.0 L 5.0-20.0 MG/DL Acetaminophen Level < 10 L 10-30 UG/ML Serum Alcohol < 10 <10 MG/DL Urine Color YELLOW Urine Clarity CLEAR Urine pH 6.0 5-9 Urine Specific White 1.025 H 1.016-1.022 Urine Protein TRACE H NEGATIVE Urine Glucose (UA) NEGATIVE NEGATIVE Urine Ketones NEGATIVE NEGATIVE Urine Nitrite NEGATIVE NEGATIVE Urine Bilirubin NEGATIVE NEGATIVE Urine Urobilinogen 1.0 < = 1.0 MG/DL Urine Leukocyte Esterase 1+ H NEGATIVE Urine RBC (Auto) NEGATIVE NEGATIVE Urine RBC RARE /HPF Urine WBC 2-5 /HPF Urine Squamous Epithelial Cells 2-5 /HPF Urine Crystals NONE /LPF Urine Bacteria TRACE /HPF Urine Casts NONE /LPF Urine Mucus MODERATE H /LPF Urine Yeast FEW H /HPF Urine Culture Indicated YES Urine Opiates Screen NEGATIVE NEGATIVE Urine Oxycodone Screen NEGATIVE NEGATIVE Urine Methadone Screen NEGATIVE NEGATIVE Urine Propoxyphene Screen NEGATIVE NEGATIVE Urine Barbiturates Screen NEGATIVE NEGATIVE Ur Tricyclic Antidepressants Screen NEGATIVE NEGATIVE Urine Phencyclidine Screen NEGATIVE NEGATIVE Urine Amphetamines Screen POSITIVE H NEGATIVE Urine Methamphetamines Screen POSITIVE H NEGATIVE Urine Benzodiazepines Screen POSITIVE H NEGATIVE Urine Cocaine Screen NEGATIVE NEGATIVE Urine Cannabinoids Screen NEGATIVE NEGATIVE My Orders Orders - GENESIS FARR MD Ua Culture If Indicated (09/10/21 09:19) Cbc With Automated Diff (09/10/21 09:19) Comprehensive Metabolic Panel (09/10/21 09:19) Alcohol (09/10/21 09:19) Drug Screen Stat (Urine) (09/10/21 09:19) Acetaminophen (09/10/21 09:19) Salicylate (09/10/21 09:19) Ekg Tracing (09/10/21 09:19) Ed Iv/Invasive Line Start (09/10/21 09:19) Monitor-Rhythm Ecg Trace Only (09/10/21 09:19) Hcg,Qualitative Serum (09/10/21 09:22) Bh Status Checks/Observation Q15M (09/10/21 09:34) Covid 19 Inhouse Test (09/10/21 10:04) Influenza A And B By Pcr (09/10/21 10:04) Potassium Chloride (Tablet) (Klor Con Ta (09/10/21 10:45) General/Regular (09/10/21 Lunch) Urine Culture (09/10/21 10:55) Medications Given in ED Current Medications Medications Dose Ordered Sig/James Route Start Time Stop Time Status Last Admin Dose Admin Potassium Chloride 20 meq ONCE ONCE PO 09/10/21 10:45 09/10/21 10:46 DC 09/10/21 12:21 20 MEQ Vital Signs/I&O 09/10/21 09:09 Temp 36.4 Pulse 84 Resp 16 B/P (MAP) 131/97 (108) Pulse Ox 99 O2 Delivery Room Air Blood Pressure Mean: 108 Progress Progress Note : Progress Note Patient was interviewed and examined. Medical clearance is pending labs. Patient has a relatively high suicide risk assessment and will likely require inpatient admission. Initial ECG Impression Date: Sep 10, 2021 Initial ECG Impression Time: 09:39 Initial ECG Rate: 74 Initial ECG Rhythm: Normal Sinus Initial ECG Intervals: Normal Initial ECG Impression: Normal Comment Normal sinus rhythm with no ST elevation or depression. No abnormal intervals or axis deviation. Departure Impression Primary Impression: Suicidal ideations Additional Impressions: Auditory hallucinations Methamphetamine use Hypokalemia Homeless Disposition: 65 XFER TO PSYCH HOSP/UNIT Condition: Stable Transfer Transfer Reason: Exceeds level of care Transfer Progress Notes Transfer accepted by Dr. Echevarria. Transfer Time: 16:54 Transfer Facility: [facility] Method of Transfer: [facility] Departure-Patient Inst. Referrals: YAJAIRA ARNDT DO (PCP/Family) Primary Care Physician GENESIS FARR MD Sep 10, 2021 09:41
[2021-09-10 09:48] LABS: BASOPHILS # (AUTO) 0.1 10^3/uL (0.0-0.1); BASOPHILS % (AUTO) 1 % (0-10); EOSINOPHILS # (AUTO) 0.2 10^3/uL (0.0-0.3); EOSINOPHILS % (AUTO) 2 % (0-10); HEMATOCRIT 36 % (35-52); HEMOGLOBIN 12.3 g/dL (11.5-16.0); LYMPHOCYTES # (AUTO) 2.3 10^3/uL (1.0-4.0); LYMPHOCYTES % (AUTO) 26 % (12-44); MEAN CORPUSCULAR HEMOGLOBIN 30 pg (25-34); MEAN CORPUSCULAR HGB CONC 34 g/dL (32-36); MEAN CORPUSCULAR VOLUME 88 fL (80-99); MONOCYTES # (AUTO) 0.8 10^3/uL (0.0-1.0); MONOCYTES % (AUTO) 9 % (0-12); NEUTROPHILS # (AUTO) 5.6 10^3/uL (1.8-7.8); NEUTROPHILS % (AUTO) 63 % (42-75); PLATELET COUNT 423 10^3/uL (130-400); WHITE BLOOD COUNT 8.9 10^3/uL (4.3-11.0)
[2021-09-10 09:57] LABS: ALBUMIN 3.7 GM/DL (3.2-4.5); CHLORIDE 105 MMOL/L (98-107); POTASSIUM 3.1 MMOL/L (3.6-5.0); SODIUM 142 MMOL/L (135-145)
[2021-09-10 10:00] LABS: GLUCOSE 112 MG/DL (70-105); TOTAL PROTEIN 6.9 GM/DL (6.4-8.2)
[2021-09-10 10:01] LABS: CARBON DIOXIDE 22 MMOL/L (21-32)
[2021-09-10 10:02] LABS: BILIRUBIN,TOTAL 0.2 MG/DL (0.1-1.0)
[2021-09-10 10:04] LABS: ALKALINE PHOSPHATASE 69 U/L (40-136); CREATININE SERUM 0.77 MG/DL (0.60-1.30); GFR ESTIMATED 104
[2021-09-10 10:05] LABS: ACETAMINOPHEN < 10 UG/ML (10-30); BUN/CREATININE RATIO 17
[2021-09-10 10:06] LABS: SALICYLATE < 5.0 MG/DL (5.0-20.0)
[2021-09-10 10:07] LABS: ALANINE AMINOTRANSFERASE 12 U/L (0-55)
[2021-09-10] MEDS ORDERED: KCL 10 MEQ TAB (MICRO K) PO ONE (10:45)
[2021-09-10 11:03] LABS: BILIRUBIN,URINE NEGATIVE (NEGATIVE); CLARITY,URINE CLEAR; COLOR,URINE YELLOW; GLUCOSE, URINE (UA) NEGATIVE (NEGATIVE); KETONES,URINE NEGATIVE (NEGATIVE); LEUKOCYTE ESTERASE ,URINE 1+ (NEGATIVE); NITRITE,URINE NEGATIVE (NEGATIVE); PROTEIN,URINE TRACE (NEGATIVE)
[2021-09-10 11:20] LABS: AMPHETAMINE SCREEN, URINE POSITIVE (NEGATIVE); BARBITURATE SCREEN URINE NEGATIVE (NEGATIVE); BENZODIAZEPINES SCREEN URINE POSITIVE (NEGATIVE); CANNABINOID SCREEN, URINE NEGATIVE (NEGATIVE); COCAINE SCREEN URINE NEGATIVE (NEGATIVE); METHADONE STAT NEGATIVE (NEGATIVE); OPIATE SCREEN URINE NEGATIVE (NEGATIVE); OXYCODONE STAT NEGATIVE (NEGATIVE); PROPOXYPHENE STAT NEGATIVE (NEGATIVE); TRICYCLIC ANTIDEPRESSANTS SCRE NEGATIVE (NEGATIVE)
[2021-09-10 11:22] LABS: BACTERIA,URINE TRACE /HPF; RBC,URINE RARE /HPF
[2021-09-10 11:25] LABS: YEAST,URINE FEW /HPF
[2021-09-10 16:54] VITALS: BP 131/97
== END 2021-09-10 16:54 ==
LOC: EDUNIT# 08:46 → EEVIPCON 08:48 → ER 08:48
DX: F15.90 Other stimulant use, unspecified, uncomplicated (principal); E87.6 Hypokalemia; R45.851 Suicidal ideations; Z59.00 Homelessness unspecified; Z20.822 Contact with and (suspected) exposure to COVID-19; Z28.310 Unvaccinated for COVID-19
CPT/HCPCS: 80053; 80306; 81000; 84703 ×2; 85025; 87088; 87636; 99283; G0480 ×3; 36415; 80320; 80329; 93005